=== PATIENT | female | born 1930 | race Caucasian/White ===

== ENCOUNTER 2016-08-29 08:49 | Inpatient (IN) | payer MEDICARE, BC ==
[~2016-08-29] VITALS: Ht 167.6 cm; Wt 50.0 kg
[~2016-08-29 08:49] MED LIST: ACET325 PO; ACIDTAB4 PO; FLAG500T PO; LEVA500T PO; LEVO.05
[2016-08-29 08:51] VITALS: BP 154/61; PULSE 76; RESP 18; TEMP 99; O2SAT 96
[2016-08-29] MEDS ORDERED: FERR324T4 PO (08:58)
[2016-08-29] MEDS ORDERED: LEVO50TA4 PO (08:58)
[2016-08-29] MEDS ORDERED: SODIUM CHLOR 0.9% 1000 ML INJ 1,000 ML IV SCH (09:03)
[2016-08-29] MEDS ORDERED: SODIUM CHLORIDE 0.9% FLUSH 5 ML FLUSH IV FLUSH PRN (09:15)
--- NOTE | 2016-08-29 09:29 | PD ---
HPI Chief Complaint: Fall Time Seen by Provider: 08:53 Travel History International Travel<30 days: No Contact w/Intl Traveler<30days: No Traveled to known affect area: No History of Present Illness HPI 85-year-old female arrives to the ER by EMS. Her daughter found patient on the floor this morning. The patient was lying supine on a hardwood floor somehow underneath a very narrow and long table. The patient does not recall exactly how she fell into such an awkward position. The daughter provides much of the history and notes that for the past 2 weeks or so the patient has become dependent on others were as she had been able to live alone previously requiring only visits from her daughter daily or every other day. A diagnoses of urinary tract infection was made [address] Pink and the patient was started on antibiotics. A second course of antibiotics were recently initiated. Within the last 7 days the patient has fallen thrice, most recently this morning as noted. Excessive sleepiness has been reported. Disorientation also noted as the patient reportedly slept until about 3:15 in the afternoon and then woke up to get coffee. Daughter notes work up at [facility] about one week ago was unremarkable with equivocal UA and negative head CT. No pelvis imaging performed. One fall since [facility] evaluation. PFS Past Medical History Arthritis: Yes Cancer: Yes (SKIN CANCER) Cardiovascular Problems: No High Cholesterol: No Diabetes: No Diminished Hearing: No Endocrine: Yes GERD: No Genitourinary: No Hiatal Hernia: No Immune Disorder: No Musculoskeletal: No Neurologic: No Psychiatric: No Reproductive: No Respiratory: No Thyroid Disease: Yes Ulcer: No ?: Not Menopausal: Yes Past Surgical History Eye Surgery: Yes Other Surgery: Yes Social History Alcohol Use: No Tobacco Use: No Substance Use: No Allergies-Medications (Allergen,Severity, Reaction): Coded Allergies: Benadryl (Verified Allergy, Unknown, 08/29/16) Contrast Media (Verified Allergy, Unknown, 08/29/16) Reported Meds & Prescriptions Reported Meds & Active Scripts Active Reported Ferrous Sulfate DR (Ferrous Sulfate) 324 Mg Tabdr 325 Mg PO DAILY Levothyroxine (Levothyroxine Sodium) 50 Mcg Tab 50 Mcg PO DAILY Review of Systems Except as stated in HPI: all other systems reviewed are Neg General / Constitutional: No: Fever Physical Exam Narrative GENERAL: 85 yo F, WNWD, oriented to place, knows that William Anna is the President currently, can state he daughter's and first grandchild's name as well as yes and no questioning SKIN: Warm and dry. Ecchymosis about the L anterior chest wall with appropriate tenderness. HEAD: Atraumatic. Normocephalic. Possible minute area of contusion L parietal scalp. EYES: Pupils equal and round. No scleral icterus. No injection or drainage. ENT: No nasal bleeding or discharge. Mucous membranes pink and moist. No air/ fluid level either TM. No sign skull base fracture. NECK: Trachea midline. No JVD. CARDIOVASCULAR: Regular rate and rhythm. RESPIRATORY: No accessory muscle use. Clear to auscultation. Breath sounds equal bilaterally. GASTROINTESTINAL: Abdomen soft, non-tender, nondistended. Hepatic and splenic margins not palpable. MUSCULOSKELETAL: Extremities without clubbing, cyanosis, or edema. No obvious deformities. NEUROLOGICAL: Awake and alert as noted above. No obvious cranial nerve deficits. Motor grossly within normal limits. Five out of 5 muscle strength in the arms and legs. Normal speech. PSYCHIATRIC: Appropriate mood and affect; insight and judgment normal. Data Data Last Documented VS Vital Signs Date Time Temp Pulse Resp B/P Pulse Ox O2 Delivery O2 Flow Rate FiO2 08/29/16 09:50 73 18 155/79 98 Room Air 08/29/16 08:51 99.0 VS reviewed Orders Basic Metabolic Panel (Bmp) (08/29/16 09:03) Complete Blood Count With Diff (08/29/16 09:03) Urinalysis - C+S If Indicated (08/29/16 09:03) Ct Brain W/O Iv Contrast(Rout) (08/29/16 09:03) Blood Glucose (08/29/16 09:03) Iv Access Insert/Monitor (08/29/16 09:03) Cath For Specimen (08/29/16 09:03) Oximetry (08/29/16 09:03) Sodium Chloride 0.9% Flush (Ns Flush) (08/29/16 09:15) Sodium Chlor 0.9% 1000 Ml Inj (Ns 1000 M (08/29/16 09:03) Pelvis, Ap Only (Routine) (08/29/16 ) Admit Order (Ed Use Only) (08/29/16 10:55) Chest, Single Ap (08/29/16 ) Labs Laboratory Tests Test 08/29/16 08/29/16 09:20 09:50 Urine Collection Type CATH Urine Color YELLOW Urine Turbidity CLEAR Urine pH 5.5 Urine Specific [place] 1.017 Urine Protein 100 mg/dL Urine Glucose (UA) NEG mg/dL Urine Ketones 40 mg/dL Urine Occult Blood MOD Urine Nitrite NEG Urine Bilirubin NEG Urine Leukocyte Esterase NEG Urine RBC 15-19 /hpf Urine WBC 0-2 /hpf Urine Transitional Epithelial 0-5 /hpf Cells Urine Renal Epithelial Cells 0-5 /hpf Urine Hyaline Casts 6-9 /lpf Microscopic Urinalysis Comment CATH-CULT NOT IND Urine Collection Time 09:20 White Blood Count 6.1 TH/MM3 Red Blood Count 4.48 MIL/MM3 Hemoglobin 13.0 GM/DL Hematocrit 39.4 % Mean Corpuscular Volume 87.9 FL Mean Corpuscular Hemoglobin 29.0 PG Mean Corpuscular Hemoglobin 33.0 % Concent Red Cell Distribution Width 13.5 % Platelet Count 69 TH/MM3 Mean Platelet Volume 7.8 FL Neutrophils (%) (Auto) 81.1 % Lymphocytes (%) (Auto) 5.3 % Monocytes (%) (Auto) 10.3 % Eosinophils (%) (Auto) 0.9 % Basophils (%) (Auto) 2.4 % Neutrophils # (Auto) 5.0 TH/MM3 Lymphocytes # (Auto) 0.3 TH/MM3 Monocytes # (Auto) 0.6 TH/MM3 Eosinophils # (Auto) 0.1 TH/MM3 Basophils # (Auto) 0.1 TH/MM3 CBC Comment AUTO DIFF Differential Comment AUTO DIFF CONFIRMED Platelet Estimate LOW Platelet Morphology Comment NORMAL Sodium Level 131 MEQ/L Potassium Level 3.9 MEQ/L Chloride Level 98 MEQ/L Carbon Dioxide Level 23.6 MEQ/L Anion Gap 9 MEQ/L Blood Urea Nitrogen 13 MG/DL Creatinine 0.88 MG/DL Estimat Glomerular Filtration 61 ML/MIN Rate Random Glucose 135 MG/DL Calcium Level 8.2 MG/DL [facility] Medical Decision Making Medical Screen Exam Complete: Yes Emergency Medical Condition: Yes Medical Record Reviewed: Yes Differential Diagnosis UTI, dehydration, electrolyte imbalance, metabolic disturbance, renal failure, anemia, ICH, hip/pelvic fracture Narrative Course CBC & BMP Diagram 08/29/16 09:50 UA: hematuria, no UTI Last [address] 08/29/16 0903 Signed Impressions: Service Date/Time: Monday, August 29, 2016 09:30 - CONCLUSION: Age-related findings and chronic ischemic findings. No acute intracranial findings. Naldo Spring MD Pelvis X-Ray 08/29/16 0000 Signed Impressions: Service Date/Time: Monday, August 29, 2016 09:32 - CONCLUSION: 1. Old proximal left femur fracture status post ORIF. 2. No acute fracture identified. Sacrum is obscured by bowel gas and stool. Naldo Spring MD CXR: cardiomegaly without consolidation Hematuria of unknown significance. D/w Dr Pink's service, SILK FINISHERNora Hathaway, who will take the patient as a 23 hr obs status given recurrent falls and new AMS. Diagnosis Primary Impression: Falls frequently Additional Impressions: Altered mental status Qualified Code: R41.82 - Altered mental status, unspecified altered mental status type Hematuria Admitting Information Admitting Physician Requests: Observation Otis Torres MD August 29, 2016 09:28
[2016-08-29 09:38] LABS: GLUCOSE,URINE NEG (NEG); KETONE, URINE 40 mg/dL (NEG); NITRITE,URINE NEG (NEG); PH, URINE 5.5 (5.0-8.5)
[2016-08-29 09:39] LABS: BLOOD, URINE MOD (NEG)
[2016-08-29 09:42] LABS: METHOD OF COLLECTION CATH; URINE COLOR YELLOW (YELLW/STRAW)
[2016-08-29 09:43] LABS: RBC, URINE 15-19 /hpf (0-3); TRANSITIONAL EPI CELLS, URINE 0-5 /hpf; WBC, URINE 0-2 /hpf (0-5)
[2016-08-29 09:44] LABS: COMMENT (UR) CATH-CULT NOT IND; CULTURE IF INDICATED CATH CULTURE NOT IND; RENAL EPITHELIAL CELLS 0-5 /hpf
[2016-08-29 09:50] VITALS: BP 155/79; PULSE 73; RESP 18; O2SAT 98
[2016-08-29 09:55] LABS: BASOPHIL # 0.1 TH/MM3 (0-0.2); BASOPHIL % 2.4 % (0.0-2.0); EOSINOPHIL # 0.1 TH/MM3 (0-0.4); EOSINOPHIL % 0.9 % (0.0-4.0); HEMATOCRIT 39.4 % (35.0-46.0); LYMPH % 5.3 % (9.0-44.0); LYMPHOCYTE # 0.3 TH/MM3 (1.0-4.8); MEAN CELL VOLUME 87.9 FL (80.0-100.0); MONO % 10.3 % (0.0-8.0); NEUT % 81.1 % (16.0-70.0); PLATELET COUNT 69 TH/MM3 (150-450); RED BLOOD COUNT 4.48 MIL/MM3 (4.00-5.30); RED CELL DISTRIBUTION WIDTH 13.5 % (11.6-17.2); WHITE BLOOD COUNT 6.1 TH/MM3 (4.0-11.0)
--- NOTE | 2016-08-29 10:00 | RADHPO ---
EXAM DATE/TIME: 08/29/2016 09:30 [facility] COMPARISON: No previous studies available for comparison. INDICATIONS : Found on the floor, possible fall. RADIATION DOSE: 63.72 CTDIvol (mGy) MEDICAL HISTORY : Dementia. SURGICAL HISTORY : None. ENCOUNTER: Initial ACUITY: 1 day PAIN SCALE: 0/10 LOCATION: cranial TECHNIQUE: Multiple contiguous axial images were obtained of the head. Using automated exposure control and adj ustment of the mA and/or kV according to patient size, radiation dose was kept as low as reasonably a chievable to obtain optimal diagnostic quality images. FINDINGS: CEREBRUM: The ventricles are normal for age. No evidence of midline shift, mass lesion, hemorrhage or acute in farction. No extra-axial fluid collections are seen. Periventricular white matter hypodensities like ly represent chronic ischemic change, most prominent in the right frontal lobe. 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 POSTERIOR FOSSA: The cerebellum and brainstem are intact. The 4th ventricle is midline. The cerebellopontine angle i s unremarkable. EXTRACRANIAL: The visualized portion of the orbits is intact. SKULL: The calvaria is intact. No evidence of skull fracture. CONCLUSION: Age-related findings and chronic ischemic findings. No acute intracranial findings. Naldo Spring MD on August 29, 2016 at 9:56 Board Certified Radiologist. This report was verified electronically.
[2016-08-29 10:01] LABS: HEMO FLAGS AUTO DIFF
--- NOTE | 2016-08-29 10:02 | RADHPO ---
EXAM DATE/TIME: 08/29/2016 09:32 [facility] COMPARISON: No previous studies available for comparison. INDICATIONS : Pelvic pain, slide out of chair onto floor. MEDICAL HISTORY : None. SURGICAL HISTORY : left hip replacement ENCOUNTER: Initial ACUITY: 1 day PAIN SCORE: 10 LOCATION: Bilateral pelvis FINDINGS: Single AP view of the pelvis. Left-sided hip screw and intramedullary rommel noted. Old fracture deformi ty proximal left femur. No evidence of acute fracture. Bone alignment within normal limits. Diffuse b one demineralization. Multiple distended air-filled loops of bowel. CONCLUSION: 1. Old proximal left femur fracture status post ORIF. 2. No acute fracture identified. Sacrum is obscured by bowel gas and stool. Naldo Spring MD on August 29, 2016 at 9:59 Board Certified Radiologist. This report was verified electronically.
[2016-08-29 10:03] LABS: POTASSIUM 3.9 MEQ/L (3.5-5.1)
[2016-08-29 10:05] LABS: BICARBONATE 23.6 MEQ/L (21.0-32.0)
[2016-08-29 10:35] LABS: PLATELET ESTIMATE SMEAR LOW (NORMAL); PLATELET MORPHOLOGY NORMAL (NORMAL)
[2016-08-29 10:36] LABS: SCAN/DIFF AUTO DIFF CONFIRMED
[2016-08-29] MEDS ORDERED: MAGNESIUM HYDROXIDE SUSP 30 ML CUP PO PRN (11:30)
[2016-08-29] MEDS ORDERED: ACETAMINOPHEN 325 MG TAB PO PRN (11:30)
[2016-08-29] MEDS ORDERED: SODIUM CHLORIDE 0.9% FLUSH 10 ML FLUSH IV FLUSH PRN (11:30)
[2016-08-29] MEDS ORDERED: LACTULOSE SYRUP 20 GM/30 ML CUP PO PRN (11:30)
[2016-08-29] MEDS ORDERED: BISACODYL 10 MG SUPP RECTAL PRN (11:30)
[2016-08-29] MEDS ORDERED: SENNOSIDES 8.6 MG TAB PO PRN (11:30)
[2016-08-29] MEDS ORDERED: NALOXONE HCL 0.4 MG/ML AMP IV PRN (11:30)
[2016-08-29] MEDS ORDERED: ONDANSETRON HCL 4 MG/2 ML VIAL IVP PRN (11:30)
[2016-08-29 11:38] VITALS: BP 165/77; PULSE 70; RESP 18; O2SAT 98
--- NOTE | 2016-08-29 11:54 | RADHPO ---
EXAM DATE/TIME: 08/29/2016 11:14 [facility] COMPARISON: CHEST SINGLE AP, August 21, 2014, 21:16. INDICATIONS : Fall, chest pain. MEDICAL HISTORY : None. SURGICAL HISTORY : None. ENCOUNTER: Subsequent ACUITY: 2 days PAIN SCORE: 2/10 LOCATION: Bilateral chest FINDINGS: Apical pleural thickening is present. I do not see evidence for an apical mass. CONCLUSION: Negative chest for acute disease. Riky Sams MD FACR on August 29, 2016 at 11:46 Board Certified Radiologist. This report was verified electronically.
[2016-08-29 12:45] VITALS: BP 193/85; PULSE 71; RESP 20; TEMP 98.2; O2SAT 100
[2016-08-29] MEDS ORDERED: ENOXAPARIN SODIUM 40 MG/0.4 ML SYRINGE SQ SCH (13:00)
[2016-08-29 16:00] VITALS: BP 162/82; PULSE 83; RESP 20; TEMP 98.6; O2SAT 99
--- NOTE | 2016-08-29 18:13 | HHI.HP ---
History of Present Illness Primary Care Physician Timmy Pink, DO Admission Diagnosis Recurrent Falls, AMS Diagnoses: History of Present Illness pt has one leg short she missed the chair when sitting and fell to the floor she is very alert and remembers the incident well she did not pass out or faint . due to orthopedic and djd problems she has had other falls in the past Review of Systems Cardiovascular: COMPLAINS OF: Chest pain Hematologic/lymphatic: COMPLAINS OF: Bruising Past Family Social History Allergies: Coded Allergies: Benadryl (Verified Allergy, Unknown, 08/29/16) Contrast Media (Verified Allergy, Unknown, 08/29/16) Past Medical History anemia hypothyroid Past Surgical History orif left thigh Reported Medications Reported Meds & Active Scripts Active Reported Ferrous Sulfate DR (Ferrous Sulfate) 324 Mg Tabdr 325 Mg PO DAILY Levothyroxine (Levothyroxine Sodium) 50 Mcg Tab 50 Mcg PO DAILY Active Ordered Medications Current Medications IV Flush 2 ml 2 ml UNSCH PRN IV FLUSH FLUSH AFTER USING IV ACCESS; Start at 09:15; Stop 08/29/16 at 12:33; Status DC Sodium Chloride (NS 1000 ml Inj) 1,000 ml @ 1,000 mls/hr Q1H IV Last administered on 08/29/16 09:03; Start 08/29/16 at 09:03; Stop 08/29/16 at 10:02 ; Status DC Sodium Chloride (NS Flush) 2 ml UNSCH PRN IV FLUSH FLUSH AFTER USING IV ACCESS ; Start 08/29/16 at 11:30 Sodium Chloride (NS Flush) 2 ml BID IV FLUSH ; Start 08/29/16 at 21:00 Acetaminophen (Tylenol) 650 mg Q4H PRN PO TEMP > 100.4; Start 08/29/16 at 11:30 Ondansetron HCl (Zofran Inj) 4 mg Q6H PRN IVP NAUSEA OR VOMITING; Start at 11:30 Enoxaparin Sodium (Lovenox Inj) 40 mg Q24H SQ Last administered on 08/29/16t 14 :22; Start 08/29/16 at 13:00 Naloxone HCl (Narcan Inj) 0.4 mg UNSCH PRN IV SEE LABEL COMMENTS; Start at 11:30 Senna/Docusate Sodium (Kinga-Colace) 1 tab BID PO ; Start 08/29/16 at 21:00 Magnesium Hydroxide (Milk Of Magnesia Liq) 30 ml Q12H PRN PO MILD - MODERATE CONSTIPATION; Start 08/29/16 at 11:30 Sennosides (Senokot) 17.2 mg Q12H PRN PO MODERATE - SEVERE CONSTIPATION; Start 08/29/16 at 11:30 Bisacodyl (Dulcolax Supp) 10 mg DAILY PRN RECTAL SEVERE CONSITIPATION; Start at 11:30 Lactulose (Lactulose Liq) 30 ml DAILY PRN PO SEVERE CONSITIPATION; Start at 11:30 Levothyroxine Sodium (Synthroid) 50 mcg DAILY@06 PO ; Start 08/30/16 at 06:00 Family History father in old age mother with epilepsy Social History non smoker non drinker Physical Exam Vital Signs Vital Signs Date Time Temp Pulse Resp B/P Pulse Ox O2 Delivery O2 Flow Rate FiO2 08/29/16 16:00 98.6 83 20 162/82 99 08/29/16 12:45 98.2 71 20 193/85 100 08/29/16 11:38 70 18 165/77 98 Room Air 08/29/16 09:50 73 18 155/79 98 Room Air 08/29/16 08:51 99.0 76 18 154/61 96 Physical Exam GENERAL: This is a well-nourished, well-developed patient, in no apparent distress. SKIN: No rashes, ecchymoses or lesions. Cool and dry. HEAD: Atraumatic. Normocephalic. No temporal or scalp tenderness. EYES: Pupils equal round and reactive. Extraocular motions intact. No scleral icterus. No injection or drainage. ENT: Nose without bleeding, purulent drainage or septal hematoma. Throat without erythema, tonsillar hypertrophy or exudate. Uvula midline. Airway patent. NECK: Trachea midline. No JVD or lymphadenopathy. Supple, nontender, no meningeal signs. CARDIOVASCULAR: Regular rate and rhythm without murmurs, gallops, or rubs. RESPIRATORY: Clear to auscultation. Breath sounds equal bilaterally. No wheezes , rales, or rhonchi. GASTROINTESTINAL: Abdomen soft, non-tender, nondistended. No hepato-splenomegaly , or palpable masses. No guarding. MUSCULOSKELETAL: bruising about sternum old ORIF left thigh NEUROLOGICAL: Awake and alert. Cranial nerves II through XII intact. Motor and sensory grossly within normal limits. Five out of 5 muscle strength in all muscle groups. Normal speech. Laboratory Laboratory Tests Test 08/29/16 08/29/16 09:20 09:50 Urine Collection Type CATH Urine Color YELLOW Urine Turbidity CLEAR Urine pH 5.5 Urine Specific [place] 1.017 Urine Protein 100 Urine Glucose (UA) NEG Urine Ketones 40 Urine Occult Blood MOD Urine Nitrite NEG Urine Bilirubin NEG Urine Leukocyte Esterase NEG Urine RBC 15-19 Urine WBC 0-2 Urine Transitional Epithelial 0-5 Cells Urine Renal Epithelial Cells 0-5 Urine Hyaline Casts 6-9 Microscopic Urinalysis Comment CATH-CULT NOT IND Urine Collection Time 09:20 White Blood Count 6.1 Red Blood Count 4.48 Hemoglobin 13.0 Hematocrit 39.4 Mean Corpuscular Volume 87.9 Mean Corpuscular Hemoglobin 29.0 Mean Corpuscular Hemoglobin 33.0 Concent Red Cell Distribution Width 13.5 Platelet Count 69 Mean Platelet Volume 7.8 Neutrophils (%) (Auto) 81.1 Lymphocytes (%) (Auto) 5.3 Monocytes (%) (Auto) 10.3 Eosinophils (%) (Auto) 0.9 Basophils (%) (Auto) 2.4 Neutrophils # (Auto) 5.0 Lymphocytes # (Auto) 0.3 Monocytes # (Auto) 0.6 Eosinophils # (Auto) 0.1 Basophils # (Auto) 0.1 CBC Comment AUTO DIFF Differential Comment AUTO DIFF CONFIRMED Platelet Estimate LOW Platelet Morphology Comment NORMAL Sodium Level 131 Potassium Level 3.9 Chloride Level 98 Carbon Dioxide Level 23.6 Anion Gap 9 Blood Urea Nitrogen 13 Creatinine 0.88 Estimat Glomerular Filtration 61 Rate Random Glucose 135 Calcium Level 8.2 Result Diagram: 08/29/16 0950 08/29/16 0950 Imaging Last [address] 08/29/16 0903 Signed Impressions: Service Date/Time: Monday, August 29, 2016 09:30 - CONCLUSION: Age-related findings and chronic ischemic findings. No acute intracranial findings. Naldo Spring MD Pelvis X-Ray 08/29/16 0000 Signed Impressions: Service Date/Time: Monday, August 29, 2016 09:32 - CONCLUSION: 1. Old proximal left femur fracture status post ORIF. 2. No acute fracture identified. Sacrum is obscured by bowel gas and stool. Naldo Spring MD Assessment and Plan Problem List: (1) Falls frequently Status: Acute Assessment and Plan fall with sternal bruising Discussed Condition With patient Discharge Planning home with [facility] Timmy Pink DO August 29, 2016 18:13
[2016-08-29 20:00] VITALS: BP 169/78; PULSE 70; RESP 16; TEMP 98.3; O2SAT 96
[2016-08-29] MEDS: DOCUSATE SODIUM 50 MG/SENNA 8.6 MG TAB PO SCH (21:05)
[2016-08-29] MEDS: SODIUM CHLORIDE 0.9% FLUSH 10 ML FLUSH IV FLUSH SCH (21:05)
[2016-08-30] VITALS: BP 169/85; PULSE 76; RESP 16; TEMP 98.7; O2SAT 97
[2016-08-30] MEDS: LEVOTHYROXINE SODIUM 50 MCG TAB PO SCH (06:14)
[2016-08-30 06:45] LABS: AUTOMATED NEUTROPHIL # 2.2 TH/MM3 (1.8-7.7); BASOPHIL % 0.1 % (0.0-2.0); EOSINOPHIL # 0.3 TH/MM3 (0-0.4); EOSINOPHIL % 6.5 % (0.0-4.0); HEMATOCRIT 35.2 % (35.0-46.0); LYMPH % 26.7 % (9.0-44.0); LYMPHOCYTE # 1.2 TH/MM3 (1.0-4.8); MEAN CORPUSCULAR HGB CONC 32.9 % (32.0-36.0); MONO % 15.6 % (0.0-8.0); NEUT % 51.1 % (16.0-70.0); PLATELET COUNT 60 TH/MM3 (150-450); RED CELL DISTRIBUTION WIDTH 13.9 % (11.6-17.2); WHITE BLOOD COUNT 4.4 TH/MM3 (4.0-11.0)
[2016-08-30 06:47] LABS: HEMO FLAGS AUTO DIFF
[2016-08-30 06:53] LABS: CHLORIDE 102 MEQ/L (98-107); POTASSIUM 3.9 MEQ/L (3.5-5.1); SODIUM (NA) 134 MEQ/L (136-145)
--- NOTE | 2016-08-30 06:57 | HHI.PR ---
Subjective Remarks Seen at bedside. Alert but not oriented to time. Denies any SOB. Pain noted on chest region and bruising present. Objective Vital Signs Date Time Temp Pulse Resp B/P Pulse Ox O2 Delivery O2 Flow Rate FiO2 08/30/16 00:00 98.7 76 16 169/85 97 08/29/16 20:00 98.3 70 16 169/78 96 08/29/16 16:00 98.6 83 20 162/82 99 08/29/16 12:45 98.2 71 20 193/85 100 08/29/16 11:38 70 18 165/77 98 Room Air 08/29/16 09:50 73 18 155/79 98 Room Air 08/29/16 08:51 99.0 76 18 154/61 96 I/O 08/29/16 08/29/16 08/29/16 08/30/16 08/30/16 08/30/16 07:00 15:00 23:00 07:00 15:00 23:00 Intake Total 210 ml 240 ml Balance 210 ml 240 ml Intake Oral 210 ml 240 ml # Voids 1 1 1 # Bowel Movements 1 Result Diagram: 08/30/16 0510 08/29/16 0950 Imaging Last [address] 08/29/16 0903 Signed Impressions: Service Date/Time: Monday, August 29, 2016 09:30 - CONCLUSION: Age-related findings and chronic ischemic findings. No acute intracranial findings. Naldo Spring MD Pelvis X-Ray 08/29/16 0000 Signed Impressions: Service Date/Time: Monday, August 29, 2016 09:32 - CONCLUSION: 1. Old proximal left femur fracture status post ORIF. 2. No acute fracture identified. Sacrum is obscured by bowel gas and stool. Naldo Spring MD Chest X-Ray 08/29/16 0000 Signed Impressions: Service Date/Time: Monday, August 29, 2016 11:14 - CONCLUSION: Negative chest for acute disease. Riky Sams MD FACR Objective Remarks GENERAL: Alert and cooperative SKIN: Warm and dry. HEAD: Normocephalic. EYES: No scleral icterus. No injection or drainage. NECK: Supple, trachea midline. No JVD or lymphadenopathy. CARDIOVASCULAR: Regular rate and rhythm without murmurs, gallops, or rubs. RESPIRATORY: Breath sounds equal bilaterally. No accessory muscle use. GASTROINTESTINAL: Abdomen soft, non-tender, nondistended. MUSCULOSKELETAL: No cyanosis, or edema. BACK: Nontender without obvious deformity. No CVA tenderness. Medications and IVs Current Medications Medications (Trade) Dose Ordered Sig/Terence Route Start Time Stop Time Status Last Admin (NS Flush) 2 ml UNSCH PRN IV FLUSH 08/29/16 11:30 (NS Flush) 2 ml BID IV FLUSH 08/29/16 21:00 08/29/16 21:05 (Tylenol) 650 mg Q4H PRN PO 08/29/16 11:30 (Zofran Inj) 4 mg Q6H PRN IVP 08/29/16 11:30 (Lovenox Inj) 40 mg Q24H SQ 08/29/16 13:00 08/29/16 14:22 (Narcan Inj) 0.4 mg UNSCH PRN IV 08/29/16 11:30 (Kinga-Colace) 1 tab BID PO 08/29/16 21:00 08/29/16 21:05 (Milk Of Magnesia Liq) 30 ml Q12H PRN PO 08/29/16 11:30 (Senokot) 17.2 mg Q12H PRN PO 08/29/16 11:30 (Dulcolax Supp) 10 mg DAILY PRN RECTAL 08/29/16 11:30 (Lactulose Liq) 30 ml DAILY PRN PO 08/29/16 11:30 (Synthroid) 50 mcg DAILY@06 PO 08/30/16 06:00 08/30/16 06:14 Assessment and Plan Problem List: (1) Falls frequently Status: Acute Plan: PT ordered. (2) Altered mental status Status: Acute Plan: Patient is alert not oriented to time. Neurology consulted. (3) Hematuria Status: Acute Plan: Moderate amount of Microscopic blood noted in UA. Could be related to falls/trauma. No dysuria or suprapubic discomfort noted. Urology consulted. (4) Hyponatremia Status: Acute Plan: Sodium yesterday 131 improved to 134 today. Will monitor (5) Thrombocytopenia Status: Acute Plan: Plts at 60 this AM down from 69 possibly from consumption from fall. Discussed with Dr. Pink and hematology consulted. will monitor Assessment and Plan Assessment and plan discussed with Dr. Pink. Discussed Condition With Nursing Discharge Planning Home with [facility] Physician Attestation I and the PLASTIC SEWER have both examined this patient and reviewed this note and I agree with these findings and plan of care. Timmy Pink DO Problem Qualifiers (1) Altered mental status: Qualified Code: R41.82 - Altered mental status, unspecified altered mental status type Devi Parker Aug 30, 2016 06:57
[2016-08-30 06:58] LABS: ANION GAP 9 MEQ/L (5-15); BICARBONATE 23.5 MEQ/L (21.0-32.0); BLOOD UREA NITROGEN 16 MG/DL (7-18)
[2016-08-30 07:01] LABS: ALT (GPT) 19 U/L (10-53); AST (GOT) 22 U/L (15-37); GLOMERULAR FILTRATION RATE 72 ML/MIN (>89)
[2016-08-30 07:03] LABS: TOTAL BILIRUBIN ADULT 0.5 MG/DL (0.2-1.0)
[2016-08-30 07:04] LABS: ALKALINE PHOSPHATASE 52 U/L (45-117)
[2016-08-30 07:26] LABS: SCAN/DIFF AUTO DIFF CONFIRMED
[2016-08-30 08:00] VITALS: BP 163/93; PULSE 67; RESP 20; TEMP 96.9; O2SAT 95
[2016-08-30] MEDS: DOCUSATE SODIUM 50 MG/SENNA 8.6 MG TAB PO SCH ×2 (08:21→21:32)
[2016-08-30] MEDS: SODIUM CHLORIDE 0.9% FLUSH 10 ML FLUSH IV FLUSH SCH ×2 (08:21→21:00)
[2016-08-30] MEDS ORDERED: FAMOTIDINE 20 MG TAB PO SCH (09:00)
[2016-08-30 09:58] LABS: THYROXINE (T4) 8.7 MCG/DL (4.8-13.9)
[2016-08-30 12:00] VITALS: BP 145/77; PULSE 68; RESP 18; TEMP 96.8; O2SAT 96
--- NOTE | 2016-08-30 12:17 | RADHPO ---
EXAM DATE/TIME: 08/30/2016 11:00 [facility] COMPARISON: CT BRAIN W/O CONTRAST, August 29, 2016, 9:30. INDICATIONS : CVA. Frequent falls. CONTRAST: 9 cc Omniscan (gadodiamide) IV MEDICAL HISTORY : Hypertension. SURGICAL HISTORY : Left leg and left shoulder. ENCOUNTER: Initial ACUITY: 1 day PAIN SCORE: 0/10 LOCATION: Head. TECHNIQUE: Multiplanar, multisequence MRI of the brain was performed both prior to and following the administrat ion of paramagnetic contrast. FINDINGS: CEREBRUM: There is mild generalized atrophy. Ventricles are normal in size. No evidence of midline shift, mass lesion, or hemorrhage. There is a focal ovoid 12 mm area of increased flair/T2 signal in the left fro ntal periventricular white matter. This area is associated with restricted diffusion. There is no enh ancement within this area. No extraaxial fluid collections are seen. The pituitary gland and suprase llar cistern are normal in configuration. Encephalomalacia is present in the right inferior frontal l obe and left occipital lobe. WHITE MATTER: There is moderate periventricular and subcortical white matter signal change. POSTERIOR FOSSA: The cerebellum and brainstem are intact. The 4th ventricle is midline. The cerebellopontine angle is unremarkable. The cerebellar tonsils are normal in position. DIFFUSION IMAGING: There is an ovoid area of restricted diffusion in the left frontal periventricular white matter in th e mid convexity. EXTRACRANIAL: The visualized portions of the orbits and paranasal sinuses are unremarkable. POST-CONTRAST: No abnormal areas of parenchymal or dural enhancement. No evidence of blood-brain barrier breakdown. CONCLUSION: 1. There is a focal area restricted diffusion in the left frontal periventricular white matter charac teristic of a recent ischemia. 2. Chronic changes are present including generalized atrophy and chronic periventricular and subcorti diana white matter and ischemic demyelination. There is also encephalomalacia in the right frontal lobe and left occipital lobe. Julito Dailey MD on August 30, 2016 at 12:09 Board Certified Radiologist. This report was verified electronically.
--- NOTE | 2016-08-30 12:38 | RADHPO ---
EXAM DATE/TIME: 08/30/2016 11:00 Caution: Report not yet finalized and possibly incomplete! [facility] COMPARISON: No previous studies available for comparison. INDICATIONS : Myelopathy.<<Frequent falls.>> MEDICAL HISTORY : Hypertension. SURGICAL HISTORY : Left shoulder and left leg. ENCOUNTER: Initial ACUITY: 1 day PAIN SCORE: 0/10 LOCATION: Neck. TECHNIQUE: Multiplanar, multisequence MRI examination of the cervical spine was performed. FINDINGS: The sagittal T1, T2 and inversion recovery images show a very heterogeneous appearance of vertebral b odies throughout the cervical and visualized portions of the thoracic spine. This is predominantly t ubular areas of increased T2 and inversion recovery signal which may represent prominent vascular str uctures. There is degenerative disc disease most prominent from C4-5 through C6-7 with loss of disc height and marginal spurring which does encroach on the spinal canal but does not result in significa nt stenosis. The spinal canal appears to be adequate throughout. Cord signal is normal. Posterior fossa is radiographically normal. Detailed axial images as follows: C2-C3: The thecal sac has a normal configuration. There is no evidence of disc herniation or spinal canal s tenosis. The neural foramina are patent bilaterally. C3-C4: Left facet hypertrophy. Spinal canal and neural foramina are patent. C4-C5: Uncovertebral ridging encroaches on the spinal canal with mild central spinal stenosis but no cord co mpromise. There is narrowing of both neural foramina, left greater than right. This may be severe e nough to compromise the left C5 nerve root. C5-C6: Uncovertebral ridging encroaches on the spinal canal. This does result in some central spinal stenos is with no cord compromise. Minimal encroachment on both neural foramina but the neural foramina mel ear to be adequate. C6-C7: Uncovertebral ridging encroaches on the spinal canal without cord compromise. Both neural foramina ar e adequate. C7-T1: The thecal sac has a normal configuration. There is no evidence of disc herniation or spinal canal s tenosis. The neural foramina are patent bilaterally. CONCLUSION: 1. Degenerative disc disease most prominent from C4-5 through C6-7 with uncovertebral ridging result ing in mild to moderate central spinal stenosis but no obvious significant central spinal stenosis or cord compromise. 2. There is bilateral foraminal narrowing at C4-5 predominantly due to uncovertebral ridging. This narrows the neural foramina and may compromise exiting C5 nerve roots. 3. There is facet hypertrophy leftward at C3-4. This does not result in significant stenosis. 4. Marked heterogeneity of the visualized vertebral bodies throughout the cervical and the upper kia kelli spine. Some of these appear tubular and these may represent prominent vessels. A contrasted CT scan of the lower neck and chest could be performed for further characterization. Findings could repr esent vascular shunting or a large vascular malformation. Roldan Reed MD on August 30, 2016 at 12:05
[2016-08-30] MEDS ORDERED: GADODIAMIDE PF 287 MG/ML 10 ML VIAL (for RAD MRI) IV ONE (13:12)
[2016-08-30] MEDS ORDERED: PILL SPLITTER OTHER PRN (14:15)
[2016-08-30 16:00] VITALS: BP_SYST 151; BP_SYST 157; BP_SYST 167; BP_DIAS 78; BP_DIAS 79; BP_DIAS 80; PULSE 71; RESP 18; TEMP 97.2; O2SAT 95
[2016-08-30] MEDS: ASPIRIN EC 325 MG TABEC PO SCH (16:30)
[2016-08-30] MEDS: SODIUM CHLOR 0.9% 1000 ML INJ 1,000 ML IV SCH (16:31)
--- NOTE | 2016-08-30 17:13 | EC ---
Study Study Date:08/30/2016 STUDY CONCLUSIONS SUMMARY - Left ventricle: The cavity size was normal. Wall thickness was increased in a pattern of moderate LVH. Systolic function was mildly to moderately reduced. The estimated ejection fraction was in the range of 40% to 45%. Wall motion was normal; there were no regional wall motion abnormalities. - Aortic valve: Transvalvular velocity was increased. There was mild stenosis. Valve area: 1.3cm^2(VTI). Valve area: 1.13cm^2 (Vmax). - Mitral valve: Mild regurgitation. - Tricuspid valve: Mild regurgitation. - Pulmonary arteries: PA peak pressure: 35mm Hg (S). If LV function is below 40, please consider prescribing an ACEI or ARB or document rationale for non-use. PROCEDURE DATA STUDY STATUS: Elective. Procedure: Transthoracic echocardiography. Image quality was good. Scanning was performed from the parasternal, apical, and subcostal acoustic windows. Study completion: The patient tolerated the procedure well. Transthoracic echocardiography. M-mode, complete 2D, complete spectral Doppler, and color Doppler. Patient status: Inpatient. CARDIAC ANATOMY LEFT VENTRICLE: The cavity size was normal. Wall thickness was increased in a pattern of moderate LVH. Systolic function was mildly to moderately reduced. The estimated ejection fraction was in the range of 40% to 45%. Wall motion was normal; there were no regional wall motion abnormalities. AORTIC VALVE: Trileaflet; normal thickness leaflets. Doppler: Transvalvular velocity was increased. There was mild stenosis. No regurgitation. Valve area: 1.3cm^2(VTI). Valve area: 1.13cm^2 (Vmax). Mean gradient: 9mm Hg (S). Peak gradient: 21mm Hg (S). AORTA: Aortic root: The aortic root was normal in size. MITRAL VALVE: Structurally normal valve. Doppler: Transvalvular velocity was within the normal range. There was no evidence for stenosis. Mild regurgitation. LEFT ATRIUM: The atrium was normal in size. RIGHT VENTRICLE: The cavity size was normal. Wall thickness was normal. PULMONIC VALVE: Doppler: Transvalvular velocity was within the normal range. There was no evidence for stenosis. No regurgitation. TRICUSPID VALVE: Structurally normal valve. Doppler: Transvalvular velocity was within the normal range. Mild regurgitation. PULMONARY ARTERY: The main pulmonary artery was normal-sized. Systolic pressure was within the normal range. RIGHT ATRIUM: The atrium was normal in size. PERICARDIUM: There was no pericardial effusion. SYSTEMIC VEINS: Inferior vena cava: The vessel was normal in size. BASIC MEASUREMENTS ADULT Normal Left ventricle LV internal dimension, ED, chordal level, *34 mm 43-52 PLAX LV internal dimension, ES, chordal level, 28 mm 23-38 PLAX Fractional shortening, chordal level, PLAX *18 % >29 LV posterior wall thickness, ED 10 mm IVS/LVPW ratio, ED *1.76 <1.3 Ventricular septum Septal thickness, ED 17.6 mm Aortic valve Leaflet separation *11 mm 15-26 Right ventricle RV internal dimension, ED, PLAX 19.5 mm 19-38 BASIC MEASUREMENTS ADULT Normal Aortic valve Leaflet separation *11 mm 15-26 Aorta Root diameter, ED 31 mm 20-37 Left atrium Anterior-posterior dimension, ES 40 mm 19-40 LA/aortic root ratio 1.29 DOPPLER MEASUREMENTS ADULT Normal Main pulmonary artery Pressure, S *35 mm Hg =30 Aortic valve Peak velocity, S 230 cm/s Mean velocity, S 137 cm/s VTI, S 43.8 cm Mean gradient, S 9 mm Hg Peak gradient, S 21 mm Hg Valve area, VTI 1.3 cm^2 Valve area, Vmax 1.13 cm^2 Mitral valve Peak E-wave velocity 32.6 cm/s Peak A-wave velocity 95.3 cm/s Peak E/A ratio 0.3 Tricuspid valve Regurgitant peak velocity 250 cm/s Peak RV-RA gradient, S 25 mm Hg Maximal regurgitant velocity 250 cm/s Systemic veins Estimated CVP 10 mm Hg Right ventricle RV pressure, S *35 mm Hg <30 LEGEND: Mean values are shown as u=mean value. Asterisk (*) otto values outside specified normal range. Prepared and signed by Tyron Rivero [id number]
[2016-08-30 18:36] LABS: CRENATED RBCS 2+ (NORMAL)
[2016-08-30 18:37] LABS: OVALOCYTES 1+ (NORMAL)
[2016-08-30 18:39] LABS: ACANTHOCYTES 3+ (NORMAL); KERATOCYTES 1+ (NORMAL)
[2016-08-30 18:51] LABS: BURR CELLS 2+ (NORMAL)
[2016-08-30] MEDS ORDERED: GADODIAMIDE PF 287 MG/ML 20 ML VIAL (for RAD MRI) IV ONE (19:47)
[2016-08-30 19:52] VITALS: PULSE 70
--- NOTE | 2016-08-30 19:55 | RADHPO ---
EXAM DATE/TIME: 08/30/2016 19:36 [facility] COMPARISON: MRI BRAIN W & W/O CONTRAST, August 30, 2016, 11:00. INDICATIONS : CVA. Frequent falls. MEDICAL HISTORY : Hypertension. SURGICAL HISTORY : Left leg and left shoulder. ENCOUNTER: Initial ACUITY: 1 day PAIN SCORE: 0/10 LOCATION: Head. Please note a normal MRA of the brain does not entirely exclude the possibility of a small aneurysm, nor the possibility of distal intracranial vessel disease. TECHNIQUE: 3D time of flight MRA was performed. Source images, multiplanar STS MIP, and 3D volume MIP reconstru ctions were reviewed. FINDINGS: There is excellent visualization of the major intracranial arteries out to the second-order branch ve ssels. Scattered atherosclerotic plaque particularly within the intercavernous ICAs bilaterally. Ther e is a solitary high-grade stenosis involving the left P2. A moderate stenosis involving the distal l eft M1. No aneurysm. No occlusion. No filling defect.. CONCLUSION: 1. Atherosclerotic disease with areas of luminal narrowing involving the left M1 and left P2. Zaid Coy Jr., MD on August 30, 2016 at 19:51 Board Certified Radiologist. This report was verified electronically.
[2016-08-30 19:58] LABS: FREE T4 1.24 NG/DL (0.76-1.46); HDL CHOLESTEROL 46.1 MG/DL (40.0-60.0); TOTAL PROTEIN SPE 5.8 GM/DL (6.0-7.6)
[2016-08-30 20:00] VITALS: BP_SYST 136; BP_SYST 142; BP_SYST 161; BP_DIAS 80; BP_DIAS 82; BP_DIAS 85; PULSE 82; RESP 20; TEMP 96.7; O2SAT 97
--- NOTE | 2016-08-30 20:22 | RADHPO ---
EXAM DATE/TIME: 08/30/2016 19:36 [facility] COMPARISON: No previous studies available for comparison. INDICATIONS : Stroke. Frequent falls. CONTRAST: 20 cc Omniscan (gadodiamide) IV MEDICAL HISTORY : Hypertension. SURGICAL HISTORY : Left leg and left shoulder. ENCOUNTER: Initial ACUITY: 1 day PAIN SCORE: 0/10 LOCATION: Head. Percent stenosis is calculated using the diameter of the stenotic region over the diameter of the nor mal distal internal carotid artery. TECHNIQUE: Bolus infused MRA of the extracranial circulation was performed using a neurovascular coil. Post pro cessing was performed including rotating subvolume maximum intensity projections of each carotid hannah ry, rotating full volume maximum intensity projections of both carotid arteries, sagittal and coronal sliding thin slab reformations of each carotid artery, and left oblique sliding thin slab reformatio n through the aortic arch to include the origin of the arch branch vessels. FINDINGS: AORTIC ARCH: There is a three vessel origin of the great vessels from the aorta. No evidence of ostial narrowing. RIGHT CAROTID: Common carotid and proximal ICA are patent. There is a beaded appearance to the mid extracranial ICA suggestive of FMD. The ECA is patent. LEFT CAROTID: Common carotid and proximal ICA are patent. There is a beaded appearance to the mid extracranial ICA suggestive of FMD. The ECA is patent. VERTEBRALS: The origin of the right vertebral artery is obscured by artifact. The left vertebral artery origin is patent. Atherosclerotic plaque generate a high-grade stenosis of the left vertebral artery at the le fifi of the foramen magnum. Both supply the basilar artery. CONCLUSION: 1. 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 This does not generate a hemodynamically significant stenosis. 2. Stenosis of the left vertebral artery with a patent right vertebral artery. Zaid Coy Jr., MD on August 30, 2016 at 20:18 Board Certified Radiologist. This report was verified electronically.
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
[2016-08-30] MEDS: FAMOTIDINE 20 MG TAB PO SCH (21:31)
[2016-08-31] VITALS (8 sets, daily range): BP systolic 123–168; BP diastolic 64–80; PULSE 60–78; RESP 16–20; TEMP 96.4–97.9; O2SAT 95–99
[2016-08-31] MEDS: SODIUM CHLOR 0.9% 1000 ML INJ 1,000 ML IV SCH ×2 (06:27→17:21)
[2016-08-31] MEDS: LEVOTHYROXINE SODIUM 50 MCG TAB PO SCH (06:27)
[2016-08-31 06:38] LABS: AUTOMATED NEUTROPHIL # 2.1 TH/MM3 (1.8-7.7); BASOPHIL % 0.4 % (0.0-2.0); EOSINOPHIL # 0.3 TH/MM3 (0-0.4); EOSINOPHIL % 5.9 % (0.0-4.0); HEMATOCRIT 35.7 % (35.0-46.0); LYMPH % 34.4 % (9.0-44.0); LYMPHOCYTE # 1.5 TH/MM3 (1.0-4.8); MEAN CELL VOLUME 87.7 FL (80.0-100.0); MEAN CORPUSCULAR HEMOGLOBIN 28.8 PG (27.0-34.0); MEAN CORPUSCULAR HGB CONC 32.8 % (32.0-36.0); MONO % 13.2 % (0.0-8.0); NEUT % 46.1 % (16.0-70.0); PLATELET COUNT 70 TH/MM3 (150-450); RED BLOOD COUNT 4.07 MIL/MM3 (4.00-5.30); RED CELL DISTRIBUTION WIDTH 13.6 % (11.6-17.2); WHITE BLOOD COUNT 4.5 TH/MM3 (4.0-11.0)
[2016-08-31 06:39] LABS: HEMO FLAGS AUTO DIFF
--- NOTE | 2016-08-31 06:40 | MB ---
cc: JENNIFER AYALA MD HEMATOLOGY/ONCOLOGY CONSULTATION NOTE DATE OF 1930. DATE OF CONSULTATION 08/30/2016 REASON FOR CONSULTATION Thrombocytopenia. CHIEF COMPLAINT Ms. Boss reports having "slid out of her chair" on multiple occasions over the past few weeks. She was brought into the hospital by her daughter for further workup and evaluation of recurrent falls. Per the electronic medical record, the patient was also noted to be altered mentally and confused when admitted to the hospital. HISTORY OF PRESENT ILLNESS Ms. Boss is an 85-year-old female who was originally from [place], [place]. She is a resident of the [facility]. She lives at home alone with her three dogs. The patient tells me she is independent in all activities of daily living but has of late felt unsteady on her feet and has "slid out of her chair" on multiple occasions. She denies any hard impact or injury secondary to these episodes. The Hematology Service has been asked to evaluate this patient for further workup and management of her chronic thrombocytopenia. Based on the electronic medical record, the thrombocytopenia dates back at least to 2005. The highest platelet count on record is 126,000 (September 2005) and the lowest platelet count on record is 58,000 which was from January 2011. The patient herself does not have any knowledge of a formal diagnosis of thrombocytopenia and tells me she has never been worked up for any blood disorders either. She has, however, noticed easy bruising and tells me she has some painful bruises on her sternum as well as along the sides of her jaw. She does, however, deny overt bleeding specific hematochezia or melena or nosebleeds. PAST MEDICAL HISTORY 1. Hypothyroidism. 2. Peripheral neuropathy. 3. General frailty. 4. Osteoarthritis. PAST SURGICAL HISTORY She is unable to report any surgeries other than skin cancer removal. FAMILY HISTORY Noncontributory. She cannot recall. SOCIAL HISTORY Lives at home alone. She has a daughter who lives nearby. She denies alcohol consumption or tobacco consumption. ALLERGIES BENADRYL. CONTRAST MEDIA. CURRENT INPATIENT MEDICATIONS 1. Normal saline 75 cc/hour. 2. Tylenol 650 mg p.o. q.4 hours for temperature over 100.4 degrees Fahrenheit. 3. Amlodipine 100 mg p.o. daily. 4. Aspirin 325 mg p.o. daily. 5. Dulcolax suppository, 10 mL per rectal daily. 6. Colace 1 mg p.o. b.i.d. 7. Famotidine 10 mg p.o. b.i.d. 8. Levothyroxine 50 mcg p.o. daily. 9. Magnesium hydroxide 30 mL p.o. q.12 hours. 10. Zofran 4 mg IV q.4 hours as needed for nausea and vomiting. 11. Senna 17.2 mg p.o. q.12 hours as needed for moderate to severe constipation. REVIEW OF SYSTEMS A 13-point review of systems was obtained. The following are the pertinent positives in addition to what is mentioned in the HPI - CONSTITUTIONAL: The patient reports some fatigue, weakness. Denies fevers, chills, night sweats. She tells me her appetite has been generally poor lately. HEENT: Denies headaches, blurry vision, difficulty swallowing or sore throat. She reports pain along the angle of her jaw on both sides. RESPIRATORY: Denies difficulty breathing, cough or hemoptysis. CARDIOVASCULAR: No complaints. GI: Denies nausea, vomiting, diarrhea, hematochezia or melena. She reports her appetite is generally poor. : No complaints. MUSCULOSKELETAL: No complaints. PHYSICAL EXAMINATION VITAL SIGNS: Temperature 97.2 degrees Fahrenheit, heart rate 71 beats per minute, respiratory rate 18, blood pressure 157/78, O2 sats are 95% on room air. GENERAL PHYSICAL APPEARANCE: Ms. Boss is an elderly female. She appears to be somewhat frail. She is laying in bed. She is, however, not acutely distressed. HEENT: Head atraumatic, normocephalic. Conjunctivae are not pale; sclerae are anicteric. EOMI, PERRLA. Oral exam - Dry mucous membranes. No pharyngeal erythema. No petechiae. NECK EXAMINATION: No cervical lymphadenopathy, no JVD. RESPIRATORY EXAM: Good air movement bilaterally. No added breath sounds. CARDIOVASCULAR: Regular rate and rhythm, S1-S2. No obvious murmurs, rubs or gallops. ABDOMINAL EXAM: Thin belly, soft, nontender, nondistended. No palpable hepatosplenomegaly, no inguinal lymphadenopathy. LOWER EXTREMITIES: No pretibial edema or calf tenderness. SKIN EXAMINATION: She has some bruising along the sides of her jaw, she has a resolving bruise over her sternum. LABORATORY FINDINGS Blood work dated 08/30/2016 - WBC count 4.4, hemoglobin 11.6 gm/dl, hematocrit is 35.2, platelet count 60,000, absolute neutrophil count 22. Chemistries: Sodium 134, potassium 3.9, chloride 102, bicarbonate 23.5, BUN 16, creatinine 0.76, EGFR 72, random glucose 96, calcium 8 total bilirubin 0.5, AST 22, ALT 19, alkaline phosphatase 52, albumin 3, TSH 1.9. CE screen is pending. RPR screen is pending as well. IMAGING STUDIES MRI of the brain dated 08/30/2016: There is a focal area of restricted diffusion in the left frontal periventricular white matter characteristic of recent ischemia. Chronic changes are present including generalized atrophy and chronic periventricular and subcortical white matter ischemic demyelination. There is also encephalomalacia in the right frontal lobe and left occipital lobe. ASSESSMENT Ms. Boss is an 85-year-old female who lives at home alone. She was brought into the emergency department for further workup and evaluation of altered mental status and recurrent falls. Imaging studies of the brain indicate possibility of a recent ischemic infarct as well as an encephalomalacia. The patient was noted to have a thrombocytopenia which in fact is quite chronic. I would venture to say that her platelet count at present is at her baseline. The etiology of the thrombocytopenia is not clear at this point. RECOMMENDATIONS 1. Thrombocytopenia: I will review her peripheral smear to manually count her platelets to rule out platelet clumping which may explain her thrombocytopenia. Additionally, I would like to review the morphology of her platelets to ensure these are not enlarged. 2. Additional dysmorphic or dysplastic findings will be reviewed as well. 3. If no primary bone marrow disorders are suspected based on peripheral smear analysis, I will request evaluation for other causes of thrombocytopenia, specifically hepatitis, immune thrombocytopenia, splenic sequestration secondary to splenomegaly/hypersplenism. 4. Additionally, I would also recommend her medications be evaluated for those that include adverse effects associated with thrombocytopenia. Upon cursory review I am able to identify at least one or two medications which are routinely associated with thrombocytopenia, specifically famotidine and aspirin. It may be reasonable to discontinue these temporarily to assess if her counts recover. 5. Peripheral smear reviewed: Grossly abnormal RBC morphology noted; numerous echinocytes and acanthocytes noted. Decreased PLTs. WBCs were largely normal in morphology. Pathologist's review requested. The hematology service will follow along with you. MD GERALD Dumas/HANY /6:16 PM /6:20 AM BHAVANA
[2016-08-31 06:52] LABS: POTASSIUM 3.8 MEQ/L (3.5-5.1)
[2016-08-31 06:55] LABS: BICARBONATE 25.6 MEQ/L (21.0-32.0)
[2016-08-31 07:24] LABS: ACANTHOCYTES 2+ (NORMAL); KERATOCYTES 1+ (NORMAL); OVALOCYTES 1+ (NORMAL)
[2016-08-31 07:25] LABS: PLATELET ESTIMATE SMEAR LOW (NORMAL); PLATELET MORPHOLOGY NORMAL (NORMAL); SCAN/DIFF AUTO DIFF CONFIRMED
[2016-08-31] MEDS: SODIUM CHLORIDE 0.9% FLUSH 10 ML FLUSH IV FLUSH SCH ×2 (09:00→21:00)
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
--- NOTE | 2016-08-31 09:25 | MG ---
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 MEDICATIONS Norvasc, Pepcid, Synthroid. DESCRIPTION When the patient was awake the background activity was 8-9 Hz alpha, located posteriorly, attenuates to eye opening bilaterally and symmetrically. Superimposed by excess beta activity. During the recording the patient became drowsy with slowing, the posterior background rhythm is replaced by 6-7 Hz theta. The patient transitioned to stage II sleep with the appearance of vertex wave, K-complexes and sleep spindles. Photic stimulation did not elicit a driving response. Hyperventilation was not done. There were no electrographic seizures or epileptiform discharges noted during the recording. INTERPRETATION This is an normal awake and sleep EEG recording. Excess beta activity is a nonspecific finding that may be related to medication side effects such as benzos and barbiturates. Absence of electrographic seizures or epileptiform discharges does not exclude a diagnosis of epilepsy, clinical correlation is recommended. Danielle Bundy MD RGO/LAWANDA /7:37 AM /9:18 AM MTDD
--- NOTE | 2016-08-31 10:26 | HHI.PR ---
Subjective Remarks sr Objective Vital Signs Date Time Temp Pulse Resp B/P Pulse Ox O2 Delivery O2 Flow Rate FiO2 08/31/16 08:00 96.8 63 16 160/78 98 08/31/16 04:00 96.8 60 18 153/64 96 08/31/16 00:00 96.9 68 20 168/68 96 149/80 123/68 08/30/16 20:00 96.7 82 20 142/82 97 161/85 136/80 08/30/16 19:52 70 08/30/16 16:00 97.2 71 18 157/78 95 167/79 151/80 08/30/16 12:00 96.8 68 18 145/77 96 I/O 08/30/16 08/30/16 08/30/16 08/31/16 08/31/16 08/31/16 07:00 15:00 23:00 07:00 15:00 23:00 Intake Total 240 ml 625 ml 285 ml 843 ml Output Total 350 ml Balance 240 ml 625 ml -65 ml 843 ml Intake Oral 240 ml 625 ml 240 ml IV Total 285 ml 603 ml Output Urine Total 350 ml # Voids 1 2 2 3 # Bowel Movements 0 0 0 Result Diagram: 08/31/16 0630 08/31/16 0630 Other Results mri acute cva possible bilat definite left mra ? left mca dz neck some fmd ldl inc echo ef 40-45 mild as Objective Remarks awakel oriented not aphasic moves all Assessment and Plan Assessment and Plan imp fu holter sr so far lower ef needs STATIN and asa cta she and daughter deny any iodine allergy check standing bp OOB NEURO WILL FU Ramone Rausch MD Aug 31, 2016 10:26
[2016-08-31] MEDS: ASPIRIN EC 325 MG TABEC PO SCH (10:45)
[2016-08-31] MEDS: DOCUSATE SODIUM 50 MG/SENNA 8.6 MG TAB PO SCH ×2 (10:45→22:08)
[2016-08-31] MEDS: FAMOTIDINE 20 MG TAB PO SCH (10:46)
[2016-08-31 10:48] LABS: RAPID PLASMA REAGIN SCREEN NON-REACTIVE (NON-REACTVE)
--- NOTE | 2016-08-31 11:13 | HHI.PR ---
Subjective Remarks Seen at bedside. Alert. Denies any SOB. Chest tenderness noted were bruising present. Objective Vital Signs Date Time Temp Pulse Resp B/P Pulse Ox O2 Delivery O2 Flow Rate FiO2 08/31/16 08:00 96.8 63 16 160/78 98 08/31/16 04:00 96.8 60 18 153/64 96 08/31/16 00:00 96.9 68 20 168/68 96 149/80 123/68 08/30/16 20:00 96.7 82 20 142/82 97 161/85 136/80 08/30/16 19:52 70 08/30/16 16:00 97.2 71 18 157/78 95 167/79 151/80 08/30/16 12:00 96.8 68 18 145/77 96 I/O 08/30/16 08/30/16 08/30/16 08/31/16 08/31/16 08/31/16 07:00 15:00 23:00 07:00 15:00 23:00 Intake Total 240 ml 625 ml 285 ml 843 ml Output Total 350 ml Balance 240 ml 625 ml -65 ml 843 ml Intake Oral 240 ml 625 ml 240 ml IV Total 285 ml 603 ml Output Urine Total 350 ml # Voids 1 2 2 3 # Bowel Movements 0 0 0 Result Diagram: 08/31/16 0630 08/31/16 0630 Imaging Last 72 hours Impressions Liver Ultrasound 08/31/16 0000 Signed Impressions: Service Date/Time: Wednesday, August 31, 2016 08:21 - CONCLUSION: 1. 6 mm gallstone in the gallbladder. No wall thickening or pericholecystic fluid. 2. Small left pleural effusion. Naldo Spring MD Neck Magnetic Resonance Angiography 08/30/16 1441 Signed Impressions: Service Date/Time: August 19:36 - CONCLUSION: 1. 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 This does not generate a hemodynamically significant stenosis. 2. Stenosis of the left vertebral artery with a patent right vertebral artery. Zaid Coy Jr., MD Head Magnetic Resonance Angiography 08/30/161440 Signed Impressions: Service Date/Time: August 19:36 - CONCLUSION: 1. Atherosclerotic disease with areas of luminal narrowing involving the left M1 and left P2. Zaid Coy Jr., MD Brain MRI 08/30/16 0854 Signed Impressions: Service Date/Time: August 11:00 - CONCLUSION: 1. There is a focal area restricted diffusion in the left frontal periventricular white matter characteristic of a recent ischemia. 2. Chronic changes are present including generalized atrophy and chronic periventricular and subcortical white matter and ischemic demyelination. There is also encephalomalacia in the right frontal lobe and left occipital lobe. Julito Dailey MD Head CT 08/29/16 0903 Signed Impressions: Service Date/Time: Monday, August 29, 2016 09:30 - CONCLUSION: Age-related findings and chronic ischemic findings. No acute intracranial findings. Naldo Spring MD Pelvis X-Ray 08/29/16 0000 Signed Impressions: Service Date/Time: Monday, August 29, 2016 09:32 - CONCLUSION: 1. Old proximal left femur fracture status post ORIF. 2. No acute fracture identified. Sacrum is obscured by bowel gas and stool. Naldo Spring MD Chest X-Ray 08/29/16 0000 Signed Impressions: Service Date/Time: Monday, August 29, 2016 11:14 - CONCLUSION: Negative chest for acute disease. Riky Sams MD FACR Objective Remarks GENERAL: Alert and cooperative SKIN: Warm and dry. Bruising noted on chest wall HEAD: Normocephalic. EYES: No scleral icterus. No injection or drainage. NECK: Supple, trachea midline. No JVD or lymphadenopathy. CARDIOVASCULAR: Regular rate and rhythm without murmurs, gallops, or rubs. RESPIRATORY: Breath sounds equal bilaterally. No accessory muscle use. GASTROINTESTINAL: Abdomen soft, non-tender, nondistended. MUSCULOSKELETAL: No cyanosis, or edema. BACK: Nontender without obvious deformity. No CVA tenderness. Medications and IVs Current Medications Medications (Trade) Dose Ordered Sig/Terence Route Start Time Stop Time Status Last Admin (NS Flush) 2 ml UNSCH PRN IV FLUSH 08/29/16 11:30 (NS Flush) 2 ml BID IV FLUSH 08/29/16 21:00 08/30/16 08:21 (Tylenol) 650 mg Q4H PRN PO 08/29/16 11:30 (Zofran Inj) 4 mg Q6H PRN IVP 08/29/16 11:30 (Lovenox Inj) 40 mg Q24H SQ 08/29/16 13:00 Hold 08/29/16 14:22 (Narcan Inj) 0.4 mg UNSCH PRN IV 08/29/16 11:30 (Kinga-Colace) 1 tab BID PO 08/29/16 21:00 08/31/16 10:45 (Milk Of Magnesia Liq) 30 ml Q12H PRN PO 08/29/16 11:30 (Senokot) 17.2 mg Q12H PRN PO 08/29/16 11:30 (Dulcolax Supp) 10 mg DAILY PRN RECTAL 08/29/16 11:30 (Lactulose Liq) 30 ml DAILY PRN PO 08/29/16 11:30 (Synthroid) 50 mcg DAILY@06 PO 08/30/16 06:00 08/31/16 06:27 (Norvasc) 10 mg DAILY PO 08/30/16 09:00 08/31/16 10:45 (Pepcid) 10 mg BID PO 08/30/16 21:00 08/31/16 10:46 (Pill Splitter) 1 ea UNSCH PRN OTHER 08/30/16 14:15 Aspirin 325 mg 325 mg DAILY PO 08/30/16 15:00 08/31/16 10:45 (NS 1000 ml Inj) 1,000 ml @ 75 mls/hr [id number] IV 08/30/16 14:41 08/31/16 06:27 Assessment and Plan Problem List: (1) Falls frequently Status: Acute Plan: Participating in PT (2) Altered mental status Status: Acute Plan: Patient is alert and oriented today. Neurology consulted and managing. MRI with acute CVA possible bilateral definite left. MRA with possible left MCA disease. (3) Hematuria Status: Acute Plan: Moderate amount of Microscopic blood noted in UA. Could be related to falls/trauma. No dysuria or suprapubic discomfort noted. Urology consulted and recommended follow up outpatient (4) Hyponatremia Status: Acute Plan: Sodium yesterday 131 improved to 134 today. Will monitor (5) Thrombocytopenia Status: Acute Plan: Plts improved to 70 this AM up from 60. Hematology consulted and managing. Blood work pending. Recommended to medication that may contribute to thrombocytopenia. Pepcid discontinued. Patient is on ASA per neurology so will check with neuro. Assessment and Plan Assessment and plan discussed with Dr. Pink. Discussed Condition With Nursing Discharge Planning [facility] rehab Physician Attestation I and the [employer] have both examined this patient and reviewed this note and I agree with these findings and plan of care. Timmy Pink DO Problem Qualifiers (1) Altered mental status: Qualified Code: R41.82 - Altered mental status, unspecified altered mental status type Devi Parker [facility] Aug 31, 2016 11:13
[2016-08-31 13:37] LABS: ANA SCREEN POS (NEG)
--- NOTE | 2016-08-31 18:08 | PD.ONC.PN ---
Subjective Subjective Remarks I want to sit up to have dinner. 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 Objective Data Date Time Temp Pulse Resp B/P Pulse Ox O2 Delivery O2 Flow Rate FiO2 08/31/16 16:00 96.4 78 18 143/77 97 140/70 129/70 08/31/16 12:00 97.8 71 17 156/73 95 08/31/16 08:00 96.8 63 16 160/78 98 08/31/16 04:00 96.8 60 18 153/64 96 08/31/16 00:00 96.9 68 20 168/68 96 149/80 123/68 08/30/16 20:00 96.7 82 20 142/82 97 161/85 136/80 08/30/16 19:52 70 08/31/16 08/31/16 08/31/16 07:00 15:00 23:00 Intake Total 843 ml 650 ml Balance 843 ml 650 ml Result Diagram: 08/31/16 0630 08/31/16 0630 Laboratory Results Laboratory Tests Test 08/31/16 06:30 White Blood Count 4.5 TH/MM3 Red Blood Count 4.07 MIL/MM3 Hemoglobin 11.7 GM/DL Hematocrit 35.7 % Mean Corpuscular Volume 87.7 FL Mean Corpuscular Hemoglobin 28.8 PG Mean Corpuscular Hemoglobin 32.8 % Concent Red Cell Distribution Width 13.6 % Platelet Count 70 TH/MM3 Mean Platelet Volume 7.8 FL Neutrophils (%) (Auto) 46.1 % Lymphocytes (%) (Auto) 34.4 % Monocytes (%) (Auto) 13.2 % Eosinophils (%) (Auto) 5.9 % Basophils (%) (Auto) 0.4 % Neutrophils # (Auto) 2.1 TH/MM3 Lymphocytes # (Auto) 1.5 TH/MM3 Monocytes # (Auto) 0.6 TH/MM3 Eosinophils # (Auto) 0.3 TH/MM3 Basophils # (Auto) 0.0 TH/MM3 CBC Comment AUTO DIFF Differential Comment AUTO DIFF CONFIRMED Platelet Estimate LOW Platelet Morphology Comment NORMAL Ovalocytes 1+ Acanthocytes 2+ Keratocytes 1+ Sodium Level 138 MEQ/L Potassium Level 3.8 MEQ/L Chloride Level 105 MEQ/L Carbon Dioxide Level 25.6 MEQ/L Anion Gap 7 MEQ/L Blood Urea Nitrogen 11 MG/DL Creatinine 0.60 MG/DL Estimat Glomerular Filtration 95 ML/MIN Rate Random Glucose 88 MG/DL Calcium Level 7.9 MG/DL Imaging Studies Last 24 hours Impressions Liver Ultrasound 08/31/16 0000 Signed Impressions: Service Date/Time: Wednesday, August 31, 2016 08:21 - CONCLUSION: 1. 6 mm gallstone in the gallbladder. No wall thickening or pericholecystic fluid. 2. Small left pleural effusion. Naldo Spring MD Administered Medications Medications (Trade) Dose Ordered Sig/Terence Route PRN Reason Start Time Stop Time Status Last Admin Dose Admin Sodium Chloride (NS Flush) 2 ml BID IV FLUSH 08/29/16 21:00 08/31/16 09:00 Enoxaparin Sodium (Lovenox Inj) 40 mg Q24H SQ 08/29/16 13:00 Hold 08/29/16 14:22 Senna/Docusate Sodium (Kinga-Colace) 1 tab BID PO 08/29/16 21:00 08/31/16 10:45 Levothyroxine Sodium (Synthroid) 50 mcg DAILY@06 PO 08/30/16 06:00 08/31/16 06:27 Amlodipine Besylate (Norvasc) 10 mg DAILY PO 08/30/16 09:00 08/31/16 10:45 Aspirin 325 mg 325 mg DAILY PO 08/30/16 15:00 08/31/16 10:45 Sodium Chloride (NS 1000 ml Inj) 1,000 ml @ 75 mls/hr [id number] IV 08/30/16 14:41 08/31/16 06:27 Objective Remarks GENERAL: Thin elderly short haired, hard of hearing woman, well-developed patient. SKIN: Warm and dry. HEAD: Normocephalic. EYES: No scleral icterus. No injection or drainage. NECK: Supple, trachea midline. No JVD or lymphadenopathy. LYMPHATIC: No adenopathy. CARDIOVASCULAR: Regular rate and rhythm without murmurs. RESPIRATORY: Breath sounds equal bilaterally. No accessory muscle use. GASTROINTESTINAL: Abdomen soft, non-tender, nondistended. EXTREMITIES: No cyanosis, or edema. MUSCULOSKELETAL: Adequate muscle tone. Assessment/Plan Problem List: (1) Thrombocytopenia Status: Chronic Plan: Noted thrombocytopenia since 2005. Smear review by pathology confirm low platelet count, suggest RBC findings artifact. No bleeding. Differential include ITP. Unlikely microangiopathic hemolytic process. CE positive, unclear clinical significance ? SLE Consider MDS but no anemia, no clear dysplasia. No symptoms. Platelet improved 70K today. Assessment 85 y/o female with thrombocytopenia s/p fall. Plan 1. Follow platelet count, no specific therapy needed. 2. Pt may need BM bx as out pt 3. FU with Dr. Cavanaugh on DC. Poly Reynoso MD Aug 31, 2016 18:08
[2016-08-31] MEDS: predniSONE 50 MG TAB PO SCH (22:08)
[2016-08-31 23:00] LABS: ALBUMIN SPE 3.61 GM/DL (3.50-5.00); ALPHA 1 GLOBULIN 0.24 GM/DL (0.11-0.29); ALPHA 2 GLOBULIN 0.51 GM/DL (0.22-1.00); BETA GLOBULINS (SPE) 0.6 GM/DL (0.53-1.03)
[2016-09-01] VITALS (9 sets, daily range): BP systolic 127–198; BP diastolic 73–94; PULSE 69–92; RESP 16–19; TEMP 96.1–98.9; O2SAT 96–98
[2016-09-01] MEDS: predniSONE 50 MG TAB PO SCH ×2 (03:12→08:20)
[2016-09-01] MEDS: LEVOTHYROXINE SODIUM 50 MCG TAB PO SCH (05:51)
[2016-09-01] MEDS ORDERED: LORATADINE 10 MG TAB PO ONE (08:00)
[2016-09-01] MEDS: DOCUSATE SODIUM 50 MG/SENNA 8.6 MG TAB PO SCH ×2 (08:17→21:00)
[2016-09-01] MEDS: ASPIRIN EC 325 MG TABEC PO SCH (08:17)
[2016-09-01] MEDS: SODIUM CHLORIDE 0.9% FLUSH 10 ML FLUSH IV FLUSH SCH ×2 (08:18→21:00)
[2016-09-01] MEDS: SODIUM CHLOR 0.9% 1000 ML INJ 1,000 ML IV SCH (08:19)
[2016-09-01] MEDS ORDERED: LORazepam 0.5 MG TAB PO ONE (09:00)
[2016-09-01] MEDS ORDERED: IOHEXOL 350 MG/ML 10 ML VIAL (for RAD DIAG) IV ONE (10:07)
--- NOTE | 2016-09-01 11:09 | HHI.PR ---
Subjective Remarks feeling a bit better still not ambulating well await ct reports [facility] Objective Vital Signs Date Time Temp Pulse Resp B/P Pulse Ox O2 Delivery O2 Flow Rate FiO2 09/01/16 08:00 97.4 76 18 198/94 96 09/01/16 04:45 96.1 76 16 144/83 97 09/01/16 00:51 98.0 76 18 142/73 98 08/31/16 23:00 75 08/31/16 21:10 97.9 71 16 136/68 99 08/31/16 20:00 78 08/31/16 20:00 70 08/31/16 16:00 96.4 78 18 143/77 97 140/70 129/70 08/31/16 12:00 97.8 71 17 156/73 95 I/O 08/31/16 08/31/16 08/31/16 09/01/16 09/01/16 09/01/16 07:00 15:00 23:00 07:00 15:00 23:00 Intake Total 843 ml 650 ml Balance 843 ml 650 ml Intake Oral 240 ml 650 ml IV Total 603 ml # Voids 3 4 3 # Bowel Movements 0 0 0 Result Diagram: 08/31/16 0630 08/31/16 0630 Imaging Reported Meds & Active Scripts Active Reported Ferrous Sulfate DR (Ferrous Sulfate) 324 Mg Tabdr 325 Mg PO DAILY Levothyroxine (Levothyroxine Sodium) 50 Mcg Tab 50 Mcg PO DAILY Objective Remarks GENERAL: SKIN: Warm and dry. HEAD: Atraumatic. Normocephalic. EYES: Pupils equal and round. No scleral icterus. No injection or drainage. ENT: No nasal bleeding or discharge. Mucous membranes pink and moist. NECK: Trachea midline. No JVD. CARDIOVASCULAR: Regular rate and rhythm. RESPIRATORY: No accessory muscle use. Clear to auscultation. Breath sounds equal bilaterally. GASTROINTESTINAL: Abdomen soft, non-tender, nondistended. Hepatic and splenic margins not palpable. MUSCULOSKELETAL: Extremities without clubbing, cyanosis, or edema. previous r femur orif with short leg NEUROLOGICAL: Awake and alert. No obvious cranial nerve deficits. Motor grossly within normal limits. Five out of 5 muscle strength in the arms and legs. Normal speech. PSYCHIATRIC: Appropriate mood and affect; insight and judgment normal. Medications and IVs Current Medications IV Flush 2 ml 2 ml UNSCH PRN IV FLUSH FLUSH AFTER USING IV ACCESS; Start at 09:15; Stop 08/29/16 at 12:33; Status DC Sodium Chloride (NS 1000 ml Inj) 1,000 ml @ 1,000 mls/hr Q1H IV Last administered on 08/29/16 09:03; Start 08/29/16 at 09:03; Stop 08/29/16 at 10:02 ; Status DC Sodium Chloride (NS Flush) 2 ml UNSCH PRN IV FLUSH FLUSH AFTER USING IV ACCESS ; Start 08/29/16 at 11:30 Sodium Chloride (NS Flush) 2 ml BID IV FLUSH Last administered on 08/31/16 09: 00; Start 08/29/16 at 21:00 Acetaminophen (Tylenol) 650 mg Q4H PRN PO TEMP > 100.4; Start 08/29/16 at 11:30 Ondansetron HCl (Zofran Inj) 4 mg Q6H PRN IVP NAUSEA OR VOMITING; Start at 11:30 Enoxaparin Sodium (Lovenox Inj) 40 mg Q24H SQ Last administered on 08/29/16 14 :22; Start 08/29/16 at 13:00; Status Hold Naloxone HCl (Narcan Inj) 0.4 mg UNSCH PRN IV SEE LABEL COMMENTS; Start at 11:30 Senna/Docusate Sodium (Kinga-Colace) 1 tab BID PO Last administered on 09/01/16 08:17; Start 08/29/16 at 21:00 Magnesium Hydroxide (Milk Of Magnesia Liq) 30 ml Q12H PRN PO MILD - MODERATE CONSTIPATION; Start 08/29/16 at 11:30 Sennosides (Senokot) 17.2 mg Q12H PRN PO MODERATE - SEVERE CONSTIPATION; Start 08/29/16 at 11:30 Bisacodyl (Dulcolax Supp) 10 mg DAILY PRN RECTAL SEVERE CONSITIPATION; Start at 11:30 Lactulose (Lactulose Liq) 30 ml DAILY PRN PO SEVERE CONSITIPATION; Start at 11:30 Levothyroxine Sodium (Synthroid) 50 mcg DAILY@06 PO Last administered on 05:51; Start 08/30/16 at 06:00 Amlodipine Besylate (Norvasc) 10 mg DAILY PO Last administered on 09/01/16 08: 17; Start 08/30/16 at 09:00 Famotidine (Pepcid) 20 mg BID PO Last administered on 08/30/16 08:21; Start 08/30/16 at 09:00; Stop 08/30/16 at 14:11; Status DC Gadodiamide (Omniscan Pf Inj) 9 ml STK-MED ONCE IV Last administered on 13:12; Start 08/30/16 at 13:12; Stop 08/30/16 at 13:13; Status DC Famotidine (Pepcid) 10 mg BID PO Last administered on 08/31/16 10:46; Start 08/30/16 at 21:00; Stop 08/31/16 at 11:16; Status DC Miscellaneous (Pill Splitter) 1 ea UNSCH PRN OTHER SEE LABEL COMMENTS; Start at 14:15 Aspirin 325 mg 325 mg DAILY PO Last administered on 09/01/16 08:17; Start at 15:00 Sodium Chloride (NS 1000 ml Inj) 1,000 ml @ 75 mls/hr [id number] IV Last administered on 09/01/16 08:19; Start 08/30/16 at 14:41 Gadodiamide (Omniscan Pf Inj) 20 ml STK-MED ONCE IV Last administered on 19:47; Start 08/30/16 at 19:47; Stop 08/30/16 at 19:48; Status DC Prednisone (Deltasone) 50 mg DAILY@02,08,20 PO Last administered on 09/01/16 08 :20; Start 08/31/16 at 20:00; Stop 09/01/16 at 08:01; Status DC Loratadine (Claritin) 10 mg ONCE ONCE PO Last administered on 09/01/16 08:17; Start 09/01/16 at 08:00; Stop 09/01/16 at 08:01; Status DC Lorazepam (Ativan) 0.5 mg ONCE ONCE PO Last administered on 09/01/16 08:17; Start 09/01/16 at 09:00; Stop 09/01/16 at 09:01; Status DC Iohexol (Omnipaque 350 Inj) 99 ml STK-MED ONCE IV Last administered on t 10:07; Start 09/01/16 at 10:07; Stop 09/01/16 at 10:08; Status DC Assessment and Plan Problem List: (1) Falls frequently Status: Acute Plan: await results of imaging head and nect ct pending Assessment and Plan fall with sternal bruising Discussed Condition With family wishes [facility]charge Planning to [facility] once clear by neuro and heme onc Timmy Pink DO Sep 01, 2016 11:09
--- NOTE | 2016-09-01 11:21 | RADHPO ---
EXAM DATE/TIME: 09/01/2016 09:39 [facility] COMPARISON: MRA BRAIN W/O CONTRAST, August 30, 2016, 19:36. INDICATIONS : Recurrent falls,stroke. IV CONTRAST: 99 cc Omnipaque 350 (iohexol) IV RADIATION DOSE: 43.08 CTDIvol (mGy) MEDICAL HISTORY : UTI, Old trauma SURGICAL HISTORY : None. ENCOUNTER: Initial ACUITY: 2 days PAIN SCALE: 5/10 LOCATION: Bilateral cranial Patient was premedicated for underlying contrast media allergy. TECHNIQUE: Volumetric scanning was performed using a multi-row detector CT scanner. The data was post processed with a variety of visualization algorithms including full volume maximum intensity projection, multi -planar sliding thin slab reformation, curved planar reformation, and surface rendering techniques. Using automated exposure control and adjustment of the mA and/or kV according to patient size, radiat ion dose was kept as low as reasonably achievable to obtain optimal diagnostic quality images. FINDINGS: There is excellent visualization of the major intracranial arteries out to the second-order branch ve ssels. 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 Abnormality measures 3 mm in length. Focal stenosis of the distal M1 segment of the le ft MCA is also again seen. This finding is less prominent than on the MRA examination. It measures 3 mm in length and results in mild stenosis. No other significant interval change from MRA. CONCLUSION: High-grade stenosis left MANAGER SUBWAY and mild stenosis left MCA in the areas identified on prior MRA. Naldo Spring MD on September 01, 2016 at 11:13 Board Certified Radiologist. This report was verified electronically.
--- NOTE | 2016-09-01 11:25 | RADHPO ---
EXAM DATE/TIME: 09/01/2016 09:39 [facility] COMPARISON: MRA CAROTIDS W CONTRAST, August 30, 2016, 19:36. INDICATIONS : Recurrent falls,stroke. IV CONTRAST: 99 cc Omnipaque 350 (iohexol) IV ; Cumulative dose for multiple exams. RADIATION DOSE: 43.08 CTDIvol (mGy) ; Combined studies MEDICAL HISTORY : UTI, Chest pain, old trauma SURGICAL HISTORY : None. ENCOUNTER: Initial ACUITY: 2 days PAIN SCALE: 5/10 LOCATION: Bilateral cranial Elevated flow velocities and ICA/CCA ratios have been found to correlate with increased degrees of vessel stenosis, calculated as percentage of diameter relative to a normal segment of distal ICA/CCA. TECHNIQUE: Volumetric scanning was performed using a multirow detector CT scanner. The data was post processed with a variety of visualization algorithms including full-volume maximum intensity projection, multip lanar sliding thin-slab reformation, curved-planar reformation, and surface-rendering techniques. Us ing automated exposure control and adjustment of the mA and/or kV according to patient size, radiatio n dose was kept as low as reasonably achievable to obtain optimal diagnostic quality images. FINDINGS: AORTIC ARCH: There is a three-vessel origin of the great vessels from the aorta. No evidence of ostial narrowing. RIGHT CAROTID: Calcified plaque at the carotid bulb again seen. No significant stenosis. Beaded appearance of the mi d extracranial internal carotid artery again seen and unchanged. LEFT CAROTID: Calcified plaque at the carotid bulb again seen. No significant stenosis. Beaded appearance of the mi d extracranial internal carotid artery again seen and unchanged. VERTEBRALS: The vertebral arteries have a symmetric diameter. No stenotic lesions are seen. 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 Ath erosclerotic disease at the carotid bulbs but no evidence of hemodynamically significant stenosis. Naldo Spring MD on September 01, 2016 at 11:19 Board Certified Radiologist. This report was verified electronically.
[2016-09-02] VITALS (8 sets, daily range): BP systolic 120–182; BP diastolic 63–86; PULSE 70–84; RESP 16–20; TEMP 97–98; O2SAT 95–98
[2016-09-02] MEDS: LEVOTHYROXINE SODIUM 50 MCG TAB PO SCH (05:37)
[2016-09-02] MEDS: DOCUSATE SODIUM 50 MG/SENNA 8.6 MG TAB PO SCH ×2 (09:00→21:00)
--- NOTE | 2016-09-02 09:13 | HHI.PR ---
Subjective Remarks feeling a bit anxious today worried that she is urinating too much also has developing stage II-III on coccyx Objective Vital Signs Date Time Temp Pulse Resp B/P Pulse Ox O2 Delivery O2 Flow Rate FiO2 09/02/16 08:00 97.4 82 19 182/84 98 09/02/16 05:05 97.9 81 18 140/86 96 09/02/16 00:54 98.0 73 16 120/76 95 09/01/16 21:51 98.9 69 18 127/81 96 09/01/16 18:05 92 09/01/16 16:00 97.4 84 19 159/84 98 09/01/16 14:00 87 09/01/16 12:00 97.5 79 17 141/81 98 I/O 09/01/16 09/01/16 09/01/16 09/02/16 09/02/16 09/02/16 07:00 15:00 23:00 07:00 15:00 23:00 Intake Total 375 ml Balance 375 ml IV Total 375 ml # Voids 3 1 2 # Bowel Movements 0 2 Result Diagram: 08/31/1630 08/31/16 0630 Objective Remarks GENERAL: SKIN: Warm and dry. HEAD: Atraumatic. Normocephalic. EYES: Pupils equal and round. No scleral icterus. No injection or drainage. ENT: No nasal bleeding or discharge. Mucous membranes pink and moist. NECK: Trachea midline. No JVD. CARDIOVASCULAR: Regular rate and rhythm. RESPIRATORY: No accessory muscle use. Clear to auscultation. Breath sounds equal bilaterally. GASTROINTESTINAL: Abdomen soft, non-tender, nondistended. Hepatic and splenic margins not palpable. MUSCULOSKELETAL: Extremities without clubbing, cyanosis, or edema. previous r femur orif with short leg NEUROLOGICAL: Awake and alert. No obvious cranial nerve deficits. Motor grossly within normal limits. Five out of 5 muscle strength in the arms and legs. Normal speech. PSYCHIATRIC: anxious depressed SKIN coccyx with breakdown Medications and IVs Current Medications IV Flush 2 ml 2 ml UNSCH PRN IV FLUSH FLUSH AFTER USING IV ACCESS; Start at 09:15; Stop 08/29/16 at 12:33; Status DC Sodium Chloride (NS 1000 ml Inj) 1,000 ml @ 1,000 mls/hr Q1H IV Last administered on 08/29/16 09:03; Start 08/29/16 at 09:03; Stop 08/29/16 at 10:02 ; Status DC Sodium Chloride (NS Flush) 2 ml UNSCH PRN IV FLUSH FLUSH AFTER USING IV ACCESS ; Start 08/29/16 at 11:30 Sodium Chloride (NS Flush) 2 ml BID IV FLUSH Last administered on 09/01/16 21: 00; Start 08/29/16 at 21:00 Acetaminophen (Tylenol) 650 mg Q4H PRN PO TEMP > 100.4; Start 08/29/16 at 11:30 Ondansetron HCl (Zofran Inj) 4 mg Q6H PRN IVP NAUSEA OR VOMITING; Start at 11:30 Enoxaparin Sodium (Lovenox Inj) 40 mg Q24H SQ Last administered on 08/29/16 14 :22; Start 08/29/16 at 13:00; Status Hold Naloxone HCl (Narcan Inj) 0.4 mg UNSCH PRN IV SEE LABEL COMMENTS; Start at 11:30 Senna/Docusate Sodium (Kinga-Colace) 1 tab BID PO Last administered on 09/01/16 08:17; Start 08/29/16 at 21:00 Magnesium Hydroxide (Milk Of Magnesia Liq) 30 ml Q12H PRN PO MILD - MODERATE CONSTIPATION; Start 08/29/16 at 11:30 Sennosides (Senokot) 17.2 mg Q12H PRN PO MODERATE - SEVERE CONSTIPATION; Start 08/29/16 at 11:30 Bisacodyl (Dulcolax Supp) 10 mg DAILY PRN RECTAL SEVERE CONSITIPATION; Start at 11:30 Lactulose (Lactulose Liq) 30 ml DAILY PRN PO SEVERE CONSITIPATION; Start at 11:30 Levothyroxine Sodium (Synthroid) 50 mcg DAILY@06 PO Last administered on 05:37; Start 08/30/16 at 06:00 Amlodipine Besylate (Norvasc) 10 mg DAILY PO Last administered on 09/01/16 08: 17; Start 08/30/16 at 09:00 Famotidine (Pepcid) 20 mg BID PO Last administered on 08/30/16 08:21; Start 08/30/16 at 09:00; Stop 08/30/16 at 14:11; Status DC Gadodiamide (Omniscan Pf Inj) 9 ml STK-MED ONCE IV Last administered on 13:12; Start 08/30/16 at 13:12; Stop 08/30/16 at 13:13; Status DC Famotidine (Pepcid) 10 mg BID PO Last administered on 08/31/16 10:46; Start 08/30/16 at 21:00; Stop 08/31/16 at 11:16; Status DC Miscellaneous (Pill Splitter) 1 ea UNSCH PRN OTHER SEE LABEL COMMENTS; Start at 14:15 Aspirin 325 mg 325 mg DAILY PO Last administered on 09/01/16 08:17; Start at 15:00 Sodium Chloride (NS 1000 ml Inj) 1,000 ml @ 75 mls/hr [id number] IV Last administered on 09/01/16 08:19; Start 08/30/16 at 14:41; Stop 09/01/16 at 12:35; Status DC Gadodiamide (Omniscan Pf Inj) 20 ml STK-MED ONCE IV Last administered on 19:47; Start 08/30/16 at 19:47; Stop 08/30/16 at 19:48; Status DC Prednisone (Deltasone) 50 mg DAILY@02,08,20 PO Last administered on 09/01/16 08 :20; Start 08/31/16 at 20:00; Stop 09/01/16 at 08:01; Status DC Loratadine (Claritin) 10 mg ONCE ONCE PO Last administered on 09/01/16 08:17; Start 09/01/16 at 08:00; Stop 09/01/16 at 08:01; Status DC Lorazepam (Ativan) 0.5 mg ONCE ONCE PO Last administered on 09/01/16 08:17; Start 09/01/16 at 09:00; Stop 09/01/16 at 09:01; Status DC Iohexol (Omnipaque 350 Inj) 99 ml STK-MED ONCE IV Last administered on 10:07; Start 09/01/16 at 10:07; Stop 09/01/16 at 10:08; Status DC Assessment and Plan Problem List: (1) Falls frequently Status: Acute Plan: imaging shows cva and vascular disease doubt a candidate for revascularization at this age (2) Thrombocytopenia Status: Chronic Plan: improving will set fu apt with her heme onc dr MANZANARES after dc Assessment and Plan fall with sternal bruising depression anxiety add paxil decubidi consult wound care urinary frequency ck ua placement to [facility] when clear with neuro and heme onc Discussed Condition With patient and nursing Timmy Joseph DO Sep 02, 2016 09:13
[2016-09-02] MEDS: ASPIRIN EC 325 MG TABEC PO SCH (09:56)
[2016-09-02] MEDS: LORazepam 0.5 MG TAB PO PRN ×2 (09:56→16:39)
[2016-09-02] MEDS: SODIUM CHLORIDE 0.9% FLUSH 10 ML FLUSH IV FLUSH SCH ×2 (09:57→21:53)
[2016-09-02] MEDS ORDERED: PARoxetine 25 MG CONTROLLED RELEASE TAB PO ONE (10:00)
[2016-09-02] MEDS ORDERED: PARoxetine HCL 12.5 MG EXTENDED RELEASE TAB PO ONE (10:00)
[2016-09-02 11:07] LABS: AUTOMATED NEUTROPHIL # 5.5 TH/MM3 (1.8-7.7); BASOPHIL % 0.4 % (0.0-2.0); EOSINOPHIL % 0.5 % (0.0-4.0); HEMATOCRIT 36.3 % (35.0-46.0); HEMO FLAGS DIFF FINAL; LYMPH % 18.6 % (9.0-44.0); LYMPHOCYTE # 1.5 TH/MM3 (1.0-4.8); MEAN CELL VOLUME 87.2 FL (80.0-100.0); MEAN CORPUSCULAR HEMOGLOBIN 30.2 PG (27.0-34.0); MEAN CORPUSCULAR HGB CONC 34.7 % (32.0-36.0); MONO % 10.8 % (0.0-8.0); NEUT % 69.7 % (16.0-70.0); PLATELET COUNT 111 TH/MM3 (150-450); RED BLOOD COUNT 4.17 MIL/MM3 (4.00-5.30); RED CELL DISTRIBUTION WIDTH 13.7 % (11.6-17.2); WHITE BLOOD COUNT 7.9 TH/MM3 (4.0-11.0)
[2016-09-02 13:55] LABS: BLOOD, URINE NEG (NEG); GLUCOSE,URINE NEG (NEG); KETONE, URINE NEG (NEG); NITRITE,URINE NEG (NEG)
[2016-09-02 14:06] LABS: BACTERIA, URINE MANY /hpf; METHOD OF COLLECTION CLEAN CATCH; URINE COLOR YELLOW (YELLW/STRAW)
[2016-09-02 14:07] LABS: COMMENT (UR) CULTURE INDICATED; CULTURE IF INDICATED CULTURE INDICATED
--- NOTE | 2016-09-02 15:00 | HM ---
Date Performed: 08/30/2016 Time Performed: 21:30:00 HOOKUP DATE: 08/30/16 09:30:00 PM [facility] ANALYSIS START TIME: 08/30/2016 9:35:00 PM ANALYSIS END TIME: 08/31/2016 9:21:57 PM PATIENT AGE: 85 PATIENT HEIGHT: 66 PATIENT WEIGHT: 107 DRUG LIST: ROOM 8301 PATIENT DIAGNOSIS: RECURRENT FALLS AMS TEST NARRATIVE: The patient's average heart rate was 70 BPM. No episodes of tachycardia wer e noted. No episodes of bradycardia were noted. No pauses exceeding 2.0 seconds were noted. 2263 ventricular ectopics, which represented 2% of the total beat count, were noted. The highest cassandra tricular ectopic frequency occurred from 08:00 PM to 09:00 PM Fri. During this time 180 VE(s) occurr ed. Ventricular ectopics were observed as 2243 isolated beat(s) and as 10 couplet(s). No runs were noted. 91 supraventricular ectopics, which represented < 1% of the total beat count, were noted. The highest supraventricular ectopic frequency occurred from 10:00 PM to 11:00 PM [facility]. During this time 18 SVE(s) occurred. No episodes of ST depression (defined as -1.0 mm or more) were noted in channel 1. No episodes of ST depression (defined as -1.0 mm or more) were noted in channel 2. No ep isodes of ST depression (defined as -1.0 mm or more) were noted in channel 3. TEST INTERPRETATION: Patient has occasional isolated PACs with rare couplets and 1 run of three in a row and a heart rate of 100-110. No complex atrial arrhythmias are seen per no pauses. No heart blocks are seen. There are rare isolated PVCs with ten couplets present and no triplets or runs of ve ntricular tachycardia. No other significant arrhythmias are seen. There is no patient diary included. Overall, this patient has a relatively benign appearing holter monitor with occasional atrial ventri cular ectopy but no complex forms. Signed by : Joel Joy
[2016-09-03 01:27] VITALS: BP 129/70; PULSE 79; RESP 16; TEMP 97.8; O2SAT 97
[2016-09-03 04:00] VITALS: BP 137/85; PULSE 76; RESP 18; TEMP 98; O2SAT 96
[2016-09-03] MEDS: LEVOTHYROXINE SODIUM 50 MCG TAB PO SCH (06:15)
[2016-09-03 08:00] VITALS: BP 156/74; PULSE 72; PULSE 91; RESP 18; TEMP 96.4; O2SAT 97
[2016-09-03] MEDS ORDERED: ASPI325T33 PO (08:14)
[2016-09-03] MEDS ORDERED: ACET1TAB86 PO (08:14)
[2016-09-03] MEDS ORDERED: PARO12.5CR PO (08:14)
[2016-09-03] MEDS ORDERED: AMLO10 PO (08:14)
--- NOTE | 2016-09-03 08:15 | HHI.DS ---
Discharge Summary Admission Date Aug 31, 2016 at 09:47 Admitting Diagnosis Recurrent Falls, AMS Brief History pt has one leg short she missed the chair when sitting and fell to the floor she is very alert and remembers the incident well she did not pass out or faint . due to orthopedic and djd problems she has had other falls in the past CBC/BMP: 09/02/16 1050 08/31/16 0630 Significant Findings Laboratory Tests Test 09/02/16 09/02/16 10:50 13:21 Platelet Count 111 TH/MM3 (150-450) Monocytes (%) (Auto) 10.8 % (0.0-8.0) Prealbumin 14 MG/DL (20-40) Urine Bacteria MANY /hpf (NONE) PE at Discharge GENERAL: SKIN: Warm and dry. HEAD: Atraumatic. Normocephalic. EYES: Pupils equal and round. No scleral icterus. No injection or drainage. ENT: No nasal bleeding or discharge. Mucous membranes pink and moist. NECK: Trachea midline. No JVD. CARDIOVASCULAR: Regular rate and rhythm. RESPIRATORY: No accessory muscle use. Clear to auscultation. Breath sounds equal bilaterally. GASTROINTESTINAL: Abdomen soft, non-tender, nondistended. Hepatic and splenic margins not palpable. MUSCULOSKELETAL: Extremities without clubbing, cyanosis, or edema. previous r femur orif with short leg NEUROLOGICAL: Awake and alert. No obvious cranial nerve deficits. Motor grossly within normal limits. Five out of 5 muscle strength in the arms and legs. Normal speech. PSYCHIATRIC: anxious depressed SKIN coccyx with breakdown Pt Condition on Discharge: Stable Discharge Disposition: Discharge to SNF Discharge Instructions DIET: Follow Instructions for: As Tolerated, No Restrictions Speech Therapy-Diet Recommenda: Regular Activities you can perform: Regular-No Restrictions Activities to avoid: Driving for 24 hrs Additional Activity Instructio: oob assist only Timmy Pink DO Sep 03, 2016 08:15
[2016-09-03] MEDS ORDERED: CEFUROXIME AXETIL 500 MG TAB PO SCH (09:00)
[2016-09-03] MEDS: DOCUSATE SODIUM 50 MG/SENNA 8.6 MG TAB PO SCH (09:00)
[2016-09-03] MEDS ORDERED: PARoxetine HCL 12.5 MG EXTENDED RELEASE TAB PO SCH (09:00)
[2016-09-03] MEDS: ASPIRIN EC 325 MG TABEC PO SCH (09:54)
[2016-09-03] MEDS: SODIUM CHLORIDE 0.9% FLUSH 10 ML FLUSH IV FLUSH SCH (09:57)
[2016-09-03 12:00] VITALS: BP 139/88; PULSE 82; RESP 17; TEMP 96.9; O2SAT 98
[2016-09-04 17:53] LABS: ALPHA-TOCOPHEROL 13.3 mg/L (5.7-19.9); BETA-GAMMA-TOCOPHEROL LESS THAN 1.0 mg/L (< 4.3)
[2016-09-05 15:59] LABS: BIOAVAILABLE TESTOSTERONE <0.5 ng/dL (())
== END 2016-09-03 16:10 | DRG 65 ==
LOC: PHEFT 08:49 → PHEDA 10:56 → PH3A 12:26 → OBSVTOIN 08-31 09:47
PROVIDERS: ADMIT Family Medicine; ATTEND Family Medicine
DX: I63.512 Cerebral infarction due to unspecified occlusion or stenosis of left middle cerebral artery (principal); E87.1 Hypo-osmolality and hyponatremia; L89.159 Pressure ulcer of sacral region, unspecified stage; D69.6 Thrombocytopenia, unspecified; G62.9 Polyneuropathy, unspecified; R31.29 Other microscopic hematuria; R54 Age-related physical debility; E03.9 Hypothyroidism, unspecified; M21.372 Foot drop, left foot; M19.90 Unspecified osteoarthritis, unspecified site; R29.6 Repeated falls; H35.30 Unspecified macular degeneration; S20.219A Contusion of unspecified front wall of thorax, initial encounter; W07.XXXA Fall from chair, initial encounter; Y92.009 Unspecified place in unspecified non-institutional (private) residence as the place of occurrence of the external cause; F32.9 Major depressive disorder, single episode, unspecified; F41.9 Anxiety disorder, unspecified; R35.0 Frequency of micturition
CPT/HCPCS: 70450; 70496; 70498; 70544; 70548; 70553; 71010; 72141; 72170; 76705; 80048; 80053; 80061; 81001; 82550; 82552; 82607; 82746; 84134; 84165; 84402; 84403; 84425; 84436; 84439; 84443; 84446; 84484; 85025; 85060; 85652; 86038; 86039; 86592; 87077; 87086; 87186; 93225; 93226; 93306; 95819; 96360; A9579; G0378; G8987-GO; G8987-GP; G8988-GO; G8988-GP; J1650; J7030; J7512; P9612; Q9967

== ENCOUNTER 2018-01-14 19:54 | Inpatient (IN) ==
--- NOTE | 2018-01-14 20:29 | ED ---
HPI General Chief complaint: Fall Stated complaint: Fall Time Seen by Provider: 01/14/18 20:16 Source: patient and family Mode of arrival: ambulatory Limitations: altered mental status History of Present Illness HPI narrative: 87yo F with PMH of dementia and hypothyroid was brought in by her daughter who is the power of attorney lawyer for evaluation of fall today. Pt was found waving a tissue on the floor next to the deck and pt said she fell. She is a poor historian. There is left wrist swelling and pain. Unknown if she hit her head. Pt's BP was low at 85/61 at triage and tachycardic at 116bpm. Pt is still tachycardic in the medical bed but repeat BP is 161/98. Daughter said her urine has been smelling bad and looking dark for a few days. Related Data Home Medications Medication Instructions Recorded Confirmed levothyroxine 25 mcg PO DAILY 01/14/18 01/14/18 Allergies Allergy/AdvReac Type Severity Reaction Status Date / Time diatrizoate meglumine Allergy Unknown Unresponsiv Verified 01/14/18 20:27 e diphenhydramine Allergy Unknown Unresponsiv Verified 01/14/18 20:27 e gadobenic acid Allergy Unknown Unresponsiv Verified 01/14/18 20:27 e gadodiamide Allergy Unknown Unresponsiv Verified 01/14/18 20:27 e gadoteridol Allergy Unknown Unresponsiv Verified 01/14/18 20:27 e iodixanol Allergy Unknown Edema Verified 01/14/18 20:27 iohexol Allergy Unknown Edema Verified 01/14/18 20:27 Review of Systems ROS: all other systems reviewed are negative [facility] Social History Social History Substance History: No History of Abuse Second Hand Smoke Exposure: No Smoking Status: Never smoker How Often Do You Have a Drink Containing Alcohol: Never Recent Travel in [facility] within the Last 8 Weeks: No Recent Out of Country Travel within the Last 8 Weeks: No Exam Narrative Exam Narrative: GENERAL: 87yo F not in distress. SKIN: Focused skin assessment warm/dry. HEAD: Atraumatic. Normocephalic. EYES: Pupils equal and round. No scleral icterus. No injection or drainage. ENT: No nasal bleeding or discharge. Mucous membranes pink and moist. NECK: Trachea midline. No JVD. CARDIOVASCULAR: Irregular rate and rhythm. Tachycardic in the 110s-120s. No murmur appreciated. RESPIRATORY: No accessory muscle use. Clear to auscultation. Breath sounds equal bilaterally. GASTROINTESTINAL: Abdomen soft, non-tender, nondistended. MUSCULOSKELETAL: No obvious deformities. No clubbing. No cyanosis. No edema. NEUROLOGICAL: Awake and alert. No obvious cranial nerve deficits. Motor grossly within normal limits in all extremities. Sensation intact. Normal speech. Course Initial Documented Vital Signs Temperature 98.5 F 01/14/18 19:56 Pulse Rate 116 H 01/14/18 19:56 Respiratory Rate 18 01/14/18 19:56 Blood Pressure 85/61 L 01/14/18 19:56 Pulse Oximetry 97 01/14/18 19:56 Last Documented Vital Signs Temperature 98.5 F 01/14/18 19:56 Pulse Rate 99 H 01/14/18 22:22 Respiratory Rate 20 01/14/18 22:22 Blood Pressure 167/88 H 01/14/18 22:22 Pulse Oximetry 97 01/14/18 19:56 Medical Decision Making MDM Narrative Medical decision making narrative: 87yo F with left wrist deformity after a fall today. Pt has dementia and is a poor historian. Initial vital signs at triage showed hypotension and tachycardia. In the medical bed, BP is normal and pt has afib up to 125bpm. Pt given cardizem 10mg IV and HR has been in the 80s. Labs reviewed, no leukocytosis. H/H normal. Thrombocytopenia at 97, 000. This is not new. BUN/creatinine elevated at 22/1.10. 2 to 1 ratio. Pt given NS IVF. Lactic acid normal. Xray left wrist showed comminuted intraarticular fracture of distal radius and ulnar. Discussed with orthopedic surgeon Dr. Patiño who recommends splint and outpatient follow up. CT brain showed no acute findings. UA still pending. Will admit pt for new onset afib RVR. Discussed with Dr. Santos and accepted to her service. Medical Screen Exam Complete: Yes Emergency Medical Condition: Yes Differential Diagnosis Differential Diagnosis: Fracture vs. contusion vs. new onset afib vs. dehydration vs. electrolyte abnormality Lab Data Result diagrams: 01/14/18 21:00 01/14/18 21:00 Lab Results 01/14/18 01/14/18 01/14/18 Range/Units 21:00 21:00 21:00 CBC w Diff Slide review pending WBC 7.0 (4.0-11.0) th/mm3 RBC 4.12 (4.00-5.30) mil/mm3 Hgb 13.0 (11.6-15.3) gm/dL Hct 38.7 (35.0-46.0) % MCV 94.0 (80.0-100.0) fL MCH 31.6 (27.0-34.0) pg MCHC 33.7 (32.0-36.0) % RDW 13.0 (11.6-17.2) % Plt Count 97 L (150-450) th/mm3 MPV 7.8 (7.0-11.0) fL Neut % (Auto) 71.8 H (16.0-70.0) % Lymph % (Auto) 17.3 (9.0-44.0) % Sierra % (Auto) 9.7 H (0.0-8.0) % Eos % (Auto) 0.3 (0.0-4.0) % Baso % (Auto) 0.9 (0.0-2.0) % Neut # (Auto) 5.0 (1.8-7.7) th/mm3 Lymph # (Auto) 1.2 (1.0-4.8) th/mm3 Sierra # (Auto) 0.7 (0.0-0.9) th/mm3 Eos # (Auto) 0.0 (0.0-0.4) th/mm3 Baso # (Auto) 0.1 (0.0-0.2) th/mm3 WBC Differential . Diff Scan Auto diff confirmed Differential Comment . Platelet Estimate Low L (Normal) Platelet Morphology Normal (Normal) PT 10.7 (9.8-11.6) sec INR 1.1 Ratio APTT 27.0 (24.3-30.1) sec Sodium 139 (136-145) meq/L Potassium 3.8 (3.5-5.1) meq/L Chloride 104 (98-107) meq/L Carbon Dioxide 28.6 (21.0-32.0) meq/L Anion Gap 6 (5-15) meq/L BUN 22 H (7-18) mg/dL Creatinine 1.10 H (0.50-1.00) mg/dL Estimated GFR 47 L (>89) mL/min Random Glucose 108 H (74-106) mg/dL Lactic Acid (0.4-2.0) mmol/L Calcium 8.0 L (8.5-10.1) mg/dL TSH 3.870 H (0.358-3.740) uIU/mL 01/14/18 Range/Units 21:00 CBC w Diff WBC (4.0-11.0) th/mm3 RBC (4.00-5.30) mil/mm3 Hgb (11.6-15.3) gm/dL Hct (35.0-46.0) % MCV (80.0-100.0) fL MCH (27.0-34.0) pg MCHC (32.0-36.0) % RDW (11.6-17.2) % Plt Count (150-450) th/mm3 MPV (7.0-11.0) fL Neut % (Auto) (16.0-70.0) % Lymph % (Auto) (9.0-44.0) % Sierra % (Auto) (0.0-8.0) % Eos % (Auto) (0.0-4.0) % Baso % (Auto) (0.0-2.0) % Neut # (Auto) (1.8-7.7) th/mm3 Lymph # (Auto) (1.0-4.8) th/mm3 Sierra # (Auto) (0.0-0.9) th/mm3 Eos # (Auto) (0.0-0.4) th/mm3 Baso # (Auto) (0.0-0.2) th/mm3 WBC Differential Diff Scan Differential Comment Platelet Estimate (Normal) Platelet Morphology (Normal) PT (9.8-11.6) sec INR Ratio APTT (24.3-30.1) sec Sodium (136-145) meq/L Potassium (3.5-5.1) meq/L Chloride (98-107) meq/L Carbon Dioxide (21.0-32.0) meq/L Anion Gap (5-15) meq/L BUN (7-18) mg/dL Creatinine (0.50-1.00) mg/dL Estimated GFR (>89) mL/min Random Glucose (74-106) mg/dL Lactic Acid 1.3 (0.4-2.0) mmol/L Calcium (8.5-10.1) mg/dL TSH (0.358-3.740) uIU/mL Imaging Data Radiologist's impression: Head CT 01/14/18 20:23 CONCLUSION: No acute findings. Stable chronic white matter ischemic changes.. Wrist X-Ray 01/14/18 20:23 CONCLUSION: Distal radius and ulnar fractures as above. Discharge Plan Discharge Disposition Patient Disposition: 30 Still Patient Discharge Details Diagnosis: Atrial fibrillation with RVR, Fracture of wrist Physicians Team ED Provider: Shawna Nicole Primary Care Provider: Timmy Pink Attending Provider: Cindi Santos Status ED Status: Admitted Observation Patient
[2018-01-14] MEDS ORDERED: Sod Chloride 0.9% Inj 1,000 ML IV.SIG SCH (20:30)
--- NOTE | 2018-01-14 20:45 | XR ---
EXAM DATE: 01/14/2018 8:23 PM EDT AGE/SEX: 87 years / Female INDICATIONS: Pain in left wrist status post fall. CLINICAL DATA: This is the patient's initial encounter. Patient reports that signs and symptoms have been present for 1 day and indicates a pain score of 8/10. MEDICAL/SURGICAL HISTORY: None. None. COMPARISON: No prior exams available for comparison. FINDINGS: There are slightly comminuted intra-articular fractures of the distal radius and ulna with slight for eshortening. No dislocation. Bones are osteopenic. CONCLUSION: Distal radius and ulnar fractures as above. Electronically signed by: Derrell Farley MD 01/14/2018 8:44 PM EDT
[2018-01-14 21:05] LABS: Baso # (Auto) 0.1 th/mm3 (0.0-0.2); Baso % (Auto) 0.9 % (0.0-2.0); Eos % (Auto) 0.3 % (0.0-4.0); Hematocrit 38.7 % (35.0-46.0); Lymph # (Auto) 1.2 th/mm3 (1.0-4.8); Lymph % (Auto) 17.3 % (9.0-44.0); Mean Corpuscular HGB Conc 33.7 % (32.0-36.0); Mean Corpuscular Hemoglobin 31.6 pg (27.0-34.0); Mean Platelet Volume 7.8 fL (7.0-11.0); Mono # (Auto) 0.7 th/mm3 (0.0-0.9); Mono % (Auto) 9.7 % (0.0-8.0); Neut % (Auto) 71.8 % (16.0-70.0); Platelet Count 97 th/mm3 (150-450); Red Blood Count 4.12 mil/mm3 (4.00-5.30)
[2018-01-14 21:19] LABS: Potassium 3.8 meq/L (3.5-5.1)
[2018-01-14 21:22] LABS: Carbon Dioxide 28.6 meq/L (21.0-32.0)
--- NOTE | 2018-01-14 21:24 | CT ---
EXAM DATE: 01/14/2018 8:43 PM EDT AGE/SEX: 87 years / Female INDICATIONS: Trauma. Fall. CLINICAL DATA: This is the patient's initial encounter. Patient reports that signs and symptoms have been present for 1 day and indicates a pain score of 5/10. MEDICAL/SURGICAL HISTORY: Hypertension. None. RADIATION DOSE: 47.63 CTDI (mGy) COMPARISON: [facility], CT BRAIN W/O CONTRAST, 08/29/2016. . TECHNIQUE: CT of the head without contrast. Using automated exposure control and adjustment of the mA and/or kV according to patient size, radiation dose was kept as low as reasonably achievable to ob tain optimal diagnostic quality images. DICOM format image data is available electronically for revi ew and comparison. FINDINGS: Cerebrum: The ventricles are normal for age. No evidence of midline shift, mass lesion, hemorrhage or acute infarction. No extraaxial fluid collections are seen. Stable chronic white matter ischemic changes. Posterior Fossa: The cerebellum and brainstem are intact. The 4th ventricle is midline. The cerebe llopontine angle is unremarkable. Extracranial: The visualized portion of the orbits is intact. Skull: The calvaria is intact. No evidence of skull fracture. CONCLUSION: No acute findings. Stable chronic white matter ischemic changes.. Electronically signed by: Derrell Farley MD 01/14/2018 9:23 PM EDT
[2018-01-14 21:25] LABS: INR 1.1 Ratio; Prothrombin Time 10.7 sec (9.8-11.6)
[2018-01-14 21:34] LABS: Platelet Morphology Normal (Normal)
[2018-01-14 21:36] LABS: Thyroid Stimulating Hormone 3.87 uIU/mL (0.358-3.740)
[2018-01-14] MEDS: Enoxaparin Inj 100 MG/ML Syringe SQ SCH (22:35)
[2018-01-14 23:13] LABS: Bilirubin,Urine Negative (Negative); Clarity,Urine Clear (Clear); Color,Urine Yellow (Yellw/Straw); Glucose,Urine (UA) Negative (Negative); Leukocyte Esterase,Urine Negative (Negative); Nitrite,Urine Negative (Negative); Specific Gravity,Urine 1.015 (1.002-1.035); Urobilinogen,Urine 0.2 mg/dL (Less than 2)
[2018-01-14 23:17] LABS: RBC,Urine 0-3 /hpf (0-3); Squamous Epithelial Cell,Urine 0-5 /hpf (0-5); WBC,Urine 0-5 /hpf (0-5)
[2018-01-15] MEDS ORDERED: dilTIAZem 30 MG Tablet PO ONE (00:45)
[2018-01-15 07:29] LABS: Hematocrit 32.4 % (35.0-46.0); Hemoglobin 11.3 gm/dL (11.6-15.3); Mean Corpuscular HGB Conc 34.9 % (32.0-36.0); Mean Corpuscular Hemoglobin 32.2 pg (27.0-34.0); Mean Corpuscular Volume 92.3 fL (80.0-100.0); Mean Platelet Volume 8.1 fL (7.0-11.0); Platelet Count 92 th/mm3 (150-450); Red Blood Count 3.51 mil/mm3 (4.00-5.30); Red Cell Distribution Width 13.3 % (11.6-17.2); White Blood Count 5.1 th/mm3 (4.0-11.0)
[2018-01-15 07:45] LABS: Potassium 3.4 meq/L (3.5-5.1)
[2018-01-15 07:48] LABS: Calcium 7.6 mg/dL (8.5-10.1); Carbon Dioxide 26.4 meq/L (21.0-32.0)
[2018-01-15] MEDS: Enoxaparin Inj 100 MG/ML Syringe SQ SCH ×2 (09:15→22:58)
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
[2018-01-15] MEDS ORDERED: amLODIPine 5 MG Tablet PO SCH (17:00)
--- NOTE | 2018-01-15 17:05 | ECHRPT ---
Indication: ATRIAL FIB CONCLUSIONS The left ventricular systolic function is normal with an estimated ejection fraction of 60%. Normal left ventricular size. Mild concentric left ventricular hypertrophy. No regional wall motion abnormalities are present. The left atrial size is moderately dilated. Moderate thickening of the mitral valve leaflets. Moderate mitral valve regurgitation. Diffuse calcification of the aortic valve. Moderate aortic valve stenosis. Mild thickening of the tricuspid valve leaflets. There is mild tricuspid valve regurgitation. The estimated pulmonary arterial pressure is 44 mmHg. BP: / HR: Rhythm: Technical Quality: FINDINGS LEFT VENTRICLE The left ventricular systolic function is normal with an estimated ejection fraction of 60%. Normal left ventricular size. Mild concentric left ventricular hypertrophy. No regional wall motion abnormalities are present. RIGHT VENTRICLE Normal right ventricular size and systolic function. LEFT ATRIUM The left atrial size is moderately dilated. RIGHT ATRIUM The right atrial size is normal. ATRIAL SEPTUM Normal atrial septal thickness without atrial level shunting by limited color doppler interrogation. AORTA The aortic root and proximal ascending aorta are normal in size on limited imaging. MITRAL VALVE Moderate thickening of the mitral valve leaflets. Moderate mitral valve regurgitation. AORTIC VALVE Trileaflet aortic valve. Diffuse calcification of the aortic valve. Moderate aortic valve stenosis. Aortic valve area is .50 cm. Aortic valve mean gradient is 14 mmHg. TRICUSPID VALVE Mild thickening of the tricuspid valve leaflets. There is mild tricuspid valve regurgitation. The estimated pulmonary arterial pressure is 44 mmHg. PULMONARY VALVE Trivial pulmonary valve regurgitation. VESSELS The inferior vena cava was not well visualized. PERICARDIUM No pericardial effusion. Laci Ruff MD, FACC (Electronically Signed) Final Date:15 January 2018 17:05
[2018-01-15] MEDS: dilTIAZem CD 120 MG Capsule PO SCH (19:44)
--- NOTE | 2018-01-15 20:13 | MB ---
cc: Laci Ruff MD DATE: 01/15/2018 HISTORY OF PRESENT ILLNESS: Ms. Boss is an 87-year-old white female with history of hypertension, who was admitted yesterday after she was found by her daughter on the floor. She fell and fractured her left radius and ulna. She also fell about 2 weeks ago. She is supposed to transfer between wheelchair and bed. She thinks she tripped, but it is somewhat unclear if she possibly had a syncopal episode. She denies any chest pain or shortness of breath. She is mildly confused. She has a chief complaint of left upper extremity pain. PAST MEDICAL HISTORY: Positive for hypertension, dementia, left leg fracture, thyroid disease, urinary tract infection, dementia. MEDICATIONS: Include: 1. Amlodipine 5 mg a day. 2. Clonidine p.r.n. 3. Lovenox. 4. Hydrocodone. 5. The patient's only home medication is levothyroxine 25 mcg a day. ALLERGIES: IOHEXOL, GADOBENIC ACID. SOCIAL HISTORY: The patient does not smoke. She does not drink alcohol. FAMILY HISTORY: Negative for heart disease. REVIEW OF SYSTEMS: Otherwise negative. PHYSICAL EXAMINATION: VITAL SIGNS: Blood pressure 190/92, pulse 73 and regular. HEENT: Negative, 2+ carotid upstrokes, no bruits. LUNGS: Clear. HEART: Regular with no murmur or gallop. ABDOMEN: Soft. No bruits. EXTREMITIES: Without edema. 2+ pulses. Left upper extremity is immobilized. NEUROLOGIC: Grossly nonfocal. The patient is mildly confused. DIAGNOSTIC AND LABORATORY DATA: EKG was reviewed and showed atrial fibrillation with an increased ventricular response, left axis LVH with secondary ST-T changes. Hemoglobin 11.3, potassium 3.4, creatinine 0.8, TSH 3.7. Echocardiogram showed a preserved function with an ejection fraction of 60%, moderate mitral regurgitation, moderate aortic stenosis, mild tricuspid regurgitation and mild pulmonary hypertension. Telemetry now shows normal sinus rhythm. DIAGNOSES: 1. Paroxysmal atrial fibrillation. 2. Hypertension. 3. Recent fall. 4. Left upper extremity fracture. 5. Hypothyroidism. 6. Dementia. PLAN: Ms. Boss had episodes of atrial fibrillation with increased ventricular response. She also has been hypertensive. We will switch her amlodipine to diltiazem for better rate control, in case she has recurrent episodes of atrial fibrillation. I recommend to titrate her antihypertensive therapy. Full anticoagulation at this time has likely higher risk than benefit due to her recent falls. She may benefit from a daily aspirin. She is currently back in sinus rhythm. She will be monitored on telemetry. I will see her back in followup in our office after discharge. MD DANYELLE Mcarthur/an , 06:01 PM , 06:12 PM [email or web address]
--- NOTE | 2018-01-15 21:00 | ECG ---
Date Performed: 01/14/2018 Time Performed: 20:27:49 PTAGE: 87 years EKG: ATRIAL FIBRILLATION WITH RAPID VENTRICULAR RESPONSE MARKED LEFT AXIS DEVIATION INCOMPLETE R IGHT BUNDLE BRANCH BLOCK MODERATE VOLTAGE CRITERIA FOR LVH, CONSIDER NORMAL VARIANT POSSIBLE SEPTAL M YOCARDIAL INFARCTION MODERATE T-WAVE ABNORMALITY, CONSIDER LATERAL ISCHEMIA Since previous tracing, n o significant change noted ABNORMAL ECG PREVIOUS TRACING : 05/29/2012 19.38 DOCTOR: Pravin Song Interpretating Date/Time 01/15/2018 21:00:06
[2018-01-16] MEDS: dilTIAZem CD 120 MG Capsule PO SCH (08:25)
--- NOTE | 2018-01-16 08:55 | P.PNFP ---
Subjective Interval history: Denies pain, to LUE No Cp, SOB. Results - Labs Result diagrams: 01/15/18 06:35 01/15/18 06:35 - Imaging Head CT 01/14/18 20:23 CONCLUSION: No acute findings. Stable chronic white matter ischemic changes.. Wrist X-Ray 01/14/18 20:23 CONCLUSION: Distal radius and ulnar fractures as above. Physical Exam Vital signs: Vital Signs 01/15/18 09:14 01/15/18 12:00 01/15/18 16:00 Temperature 97.5 F L Pulse Rate 66 65 Respiratory Rate 17 20 Blood Pressure 183/86 H Pulse Oximetry 98 01/15/18 16:50 01/15/18 20:00 01/16/18 00:00 Temperature 98.5 F 98.4 F Pulse Rate 73 67 81 Respiratory Rate 20 18 Blood Pressure 190/92 H 89/52 L Pulse Oximetry 98 94 L 01/16/18 04:00 Temperature 96.5 F L Pulse Rate 86 Respiratory Rate 18 Blood Pressure 152/82 H Pulse Oximetry 96 Intake & Output 01/15/18 01/16/18 01/16/18 18:59 06:59 18:59 Intake Total 60 / 60 250 / 250 Output Total 700 / 700 Balance 60 / 60 -450 / -450 Weight 48.5 kg Intake: Oral 60 / 60 250 / 250 Output: Urine 700 / 700 Other: # Voids 1 Date of Last Bowel Movement 01/14/18 - Constitutional no acute distress - Routine HEENT Exam Head: Present: normocephalic Eye: Present: PERRL ENT: Present: mucous membranes moist - Routine Neck Exam Present: supple - Routine Respiratory Exam Present: CTA bilaterally - Routine Cardiovascular Exam Present: S1, S2 - Routine Abdominal Exam Present: soft, normoactive bowel sounds - Routine Extremities Exam Comments: LUE with soft cast good capillary refill - Routine Skin Exam Present: dry, warm - Routine Neurological Exam Present: alert - Routine Psychiatric Exam Present: cooperative - Urinary Catheter Management Indwelling Urethral Catheter Cath placed during this visit: yes, but has since been removed by the nurse Reason for continuing: Decision to DC catheter Insertion date: 01/14/18 Insertion time: 22:50 Removal date: 01/15/18 Removal time: 04:30 Assessment and Plan - Assessment (1) Atrial fibrillation with RVR Code(s): I48.91 - Unspecified atrial fibrillation Status: Acute (2) Fracture of wrist Code(s): S62.109A - Fracture of unspecified carpal bone, unspecified wrist, initial encounter for closed fracture Status: Acute Plan: Soft cast in place, pain controlled (3) HTN (hypertension) Code(s): I10 - Essential (primary) hypertension Status: Acute Plan: Monitor BP started on Cardizem per cardiology, Titrate as needed - Assessment and Plan 01/16/18- cardiology following, converted to SR, started on Cardizem, for rate and BP control. Will have Pt eval and treat, for possible SNF placement. (2) Fracture of wrist Qualifiers: Encounter type: initial encounter Fracture type: closed Laterality: left Qualified Code(s): S62.102A - Fracture of unspecified carpal bone, left wrist, initial encounter for closed fracture
[2018-01-16] MEDS: Enoxaparin Inj 100 MG/ML Syringe SQ SCH ×2 (10:18→23:59)
[2018-01-17] MEDS: dilTIAZem CD 120 MG Capsule PO SCH (09:16)
[2018-01-17] MEDS: Enoxaparin Inj 100 MG/ML Syringe SQ SCH ×2 (09:17→21:29)
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
--- NOTE | 2018-01-17 10:09 | P.PNFP ---
Subjective Interval history: Seen this am, resting comfortable daughter in room Denies any complaints No CP, No SOB Results - Labs Result diagrams: 01/15/18 06:35 01/15/18 06:35 Microbiology 01/14/18 21:00 Aerobic Blood Culture - Preliminary Blood - Peripheral No growth in 2 days Anaerobic Blood Culture - Preliminary Staphylococcus epidermidis 01/14/18 20:50 Aerobic Blood Culture - Preliminary Blood - Peripheral No growth in 2 days Anaerobic Blood Culture - Preliminary No growth in 2 days Physical Exam Vital signs: Vital Signs 01/16/18 12:00 01/16/18 16:00 01/16/18 20:00 Temperature 98.0 F 98.2 F 96.3 F L Pulse Rate 62 66 56 L Respiratory Rate 16 17 20 Blood Pressure 134/65 152/72 H 144/69 H Pulse Oximetry 96 97 97 01/17/18 00:00 01/17/18 04:00 Temperature 97.8 F 97.6 F Pulse Rate 59 L 62 Respiratory Rate 20 20 Blood Pressure 135/65 150/70 H Pulse Oximetry 97 97 Intake & Output 01/16/18 01/17/18 01/17/18 18:59 06:59 18:59 Intake Total 720 / 720 60 / 60 Balance 720 / 720 60 / 60 Intake: Oral 720 / 720 60 / 60 Other: # Voids 2 # Incontinent Voids 2 Date of Last Bowel Movement 01/14/18 # Bowel Movements 2 # Incontinent Bowel Movements 1 - Constitutional no acute distress - Routine HEENT Exam Head: Present: normocephalic Eye: Present: PERRL ENT: Present: mucous membranes moist - Routine Neck Exam Present: supple - Routine Respiratory Exam Present: CTA bilaterally - Routine Cardiovascular Exam Present: S1, S2 - Routine Abdominal Exam Present: soft, normoactive bowel sounds - Routine Extremities Exam Present: normal capillary refill Comments: Soft splint to LUE, Fingers warm + cap refill - Routine Skin Exam Present: dry, warm - Routine Neurological Exam Present: alert - Routine Psychiatric Exam Present: cooperative - Urinary Catheter Management Indwelling Urethral Catheter Cath placed during this visit: yes, but has since been removed by the nurse Reason for continuing: Decision to DC catheter Insertion date: 01/14/18 Insertion time: 22:50 Removal date: 01/15/18 Removal time: 04:30 Assessment and Plan - Assessment (1) Atrial fibrillation with RVR Code(s): I48.91 - Unspecified atrial fibrillation Status: Acute (2) Fracture of wrist Code(s): S62.109A - Fracture of unspecified carpal bone, unspecified wrist, initial encounter for closed fracture Status: Acute Plan: Soft cast in place, pain controlled (3) HTN (hypertension) Code(s): I10 - Essential (primary) hypertension Status: Acute Plan: Monitor BP started on Cardizem per cardiology, Titrate as needed - Assessment and Plan 01/16/18- cardiology following, converted to SR, started on Cardizem, for rate and BP control. Will have Pt eval and treat, for possible SNF placement. 01/17/18- Resting comfortable, denies pain, VSS afebrile. Daughter at bedside, Request rehab as she just had back surgery. She has been in [place], Will refer to for rehab placement once cleared by ID, likely over weekend. SR, Rate controlled. 3008 on chart (2) Fracture of wrist Qualifiers: Qualified Code(s): S62.102A - Fracture of unspecified carpal bone, left wrist , initial encounter for closed fracture
[2018-01-18] MEDS: dilTIAZem CD 120 MG Capsule PO SCH (08:18)
[2018-01-18 09:31] VITALS: RESP 20
[2018-01-18] MEDS: Enoxaparin Inj 100 MG/ML Syringe SQ SCH (10:24)
--- NOTE | 2018-01-18 12:59 | P.DS ---
Date of admission: 01/14/18 21:57 Primary care physician: Timmy Pink DO Attending physician on discharge: Timmy Pink Anticipated date of discharge: 01/18/18 Brief History from admission: She presented after falling at home and was treated for a fracture of the right wrist. She had 1/4 positive BC but ID agrees it is likely a contaminant and she does not need antibiotics at this time and is cleared for D/C to SNF. Patient update on day of discharge: She is awake and alert and denies pain. She remains afebrile with stable VS and is medically cleared for D/C. DS: Diagnosis - Discharge Diagnosis (1) Atrial fibrillation with RVR Status: Chronic (2) Fracture of wrist Status: Acute (3) HTN (hypertension) Status: Chronic DS: Summary Hospital Course: She has done well S/P fracture right wrist and Ortho and Cards have been following. Her AF with RVR has resolved and she has a controlled rate with Diltiazem. She is medically cleared for D/C to SNF and 3008 signed and on chart. We will F/U with her at [facility] and arrange outpatient F/U with Ortho and Cards. - Time Spent with Patient Total time spent providing and/or coordinating discharge services: Greater than 30 minutes - Quality: AMI Clinical Trial Participant: No Exam Vital signs: Vital Signs 01/17/18 16:00 01/17/18 20:00 01/17/18 23:46 Temperature 98.0 F 98.5 F 98.5 F Pulse Rate 72 76 78 Respiratory Rate 17 16 16 Blood Pressure 139/65 151/94 H 148/89 H Pulse Oximetry 96 96 96 01/18/18 08:00 01/18/18 10:11 Temperature 96.9 F L Pulse Rate 62 Respiratory Rate 20 20 Blood Pressure 138/65 Pulse Oximetry 96 Intake & Output 01/17/18 01/18/18 01/18/18 18:59 06:59 18:59 Intake Total 720 / 720 Output Total 300 / 300 350 / 350 Balance 420 / 420 -350 / -350 Weight 48.5 kg Intake: Oral 720 / 720 Output: Urine 300 / 300 350 / 350 Other: # Incontinent Voids 2 Date of Last Bowel Movement 01/17/18 01/17/18 01/17/18 # Bowel Movements 2 - Constitutional no acute distress - Routine HEENT Exam Head: Present: normocephalic Eye: Present: PERRL, normal accommodation ENT: Present: mucous membranes moist - Routine Neck Exam Present: supple, full ROM - Routine Respiratory Exam Present: CTA bilaterally - Routine Cardiovascular Exam Present: irregularly irregular - Routine Abdominal Exam Present: soft, normoactive bowel sounds - Routine Extremities Exam Comments: Right wrist in a soft cast. - Routine Skin Exam Present: intact - Routine Neurological Exam Present: alert, oriented X3 Results Procedures completed during hospitalization: Repair right wrist fx Labs on day of discharge: Preliminary micro results at discharge 01/14/18 20:50 Aerobic Blood Culture - Preliminary Blood - Peripheral No growth in 4 days Anaerobic Blood Culture - Preliminary No growth in 4 days 01/14/18 21:00 Aerobic Blood Culture - Preliminary Blood - Peripheral No growth in 4 days Anaerobic Blood Culture - Preliminary Staphylococcus epidermidis - Impressions ITS Impressions Head CT 01/14/18 20:23 CONCLUSION: No acute findings. Stable chronic white matter ischemic changes.. Wrist X-Ray 01/14/18 20:23 CONCLUSION: Distal radius and ulnar fractures as above. Discharge Plan - Discharge Disposition Patient Disposition: Discharge to SNF - Discharge Condition Condition: Good - Discharge Order Discharge Orders: Discharge Order (Routine); Ordered 01/18/18 Ordered By: Derrick Cole - Physicians Team Primary Care Provider: Timmy Pink Attending Provider: Timmy Pink Other Providers: Nathan Ellsworth MD ; Laci Ruff MD ; Selam Pelayo MD ; [facility],[place]
[2018-01-18 13:12] VITALS: BP 153/69; PULSE 63; TEMP 97.6; O2SAT 98
== END 2018-01-18 17:00 ==
LOC: PHED 19:54 → PHEDA 21:57 → PH3 01-15 00:04
PROVIDERS: ADMIT Family Medicine; ATTEND Family Medicine

== ENCOUNTER 2018-02-26 20:27 | Inpatient (IN) ==
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
--- NOTE | 2018-02-26 21:01 | CT ---
EXAM DATE: 02/26/2018 8:57 PM EST AGE/SEX: 87 years / Female INDICATIONS: Fall. Right occipital injury. CLINICAL DATA: This is the patient's initial encounter. Patient reports that signs and symptoms have been present for 1 day and indicates a pain score of 8/10. MEDICAL/SURGICAL HISTORY: Hypertension. None. RADIATION DOSE: 35.60 CTDI (mGy) COMPARISON: [facility], CT HEAD W/O CONTRAST, 01/14/2018. . TECHNIQUE: CT of the head without contrast. Using automated exposure control and adjustment of the mA and/or kV according to patient size, radiation dose was kept as low as reasonably achievable to ob tain optimal diagnostic quality images. DICOM format image data is available electronically for revi ew and comparison. FINDINGS: Cerebrum: The ventricles are normal for age with moderate atrophic changes. Stable encephalomalacia is again noted in the right frontal lobe. No evidence of midline shift, mass lesion, hemorrhage or ac javy infarction. No extraaxial fluid collections are seen. Posterior Fossa: The cerebellum and brainstem are intact. The 4th ventricle is midline. The cerebe llopontine angle is unremarkable. Extracranial: The visualized portion of the orbits is intact. Skull: The calvaria is intact. No evidence of skull fracture. CONCLUSION: 1. No acute hemorrhage or mass effect. 2. 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 . Electronically signed by: Larry Gates MD 02/26/2018 8:59 PM EST
--- NOTE | 2018-02-26 21:30 | XR ---
EXAM DATE: 02/26/2018 9:24 PM EST AGE/SEX: 87 years / Female INDICATIONS: Chest pain after fall. CLINICAL DATA: This is the patient's initial encounter. Patient reports that signs and symptoms have been present for 1 day and indicates a pain score of 1/10. MEDICAL/SURGICAL HISTORY: None. None. COMPARISON: [facility] [place], [facility] (2VWS), 02/01/2011. . FINDINGS: Stable biapical pleural calcification. No definite pneumothorax or hemothorax. Lungs are clear. Cardi ac contours are stable and satisfactory. Posttraumatic deformity of the left shoulder which is old CONCLUSION: No acute disease Electronically signed by: Julito Mohan MD 02/26/2018 9:28 PM EST
--- NOTE | 2018-02-26 21:32 | XR ---
EXAM DATE: 02/26/2018 9:26 PM EST AGE/SEX: 87 years / Female INDICATIONS: Right proximal femur pain after fall. CLINICAL DATA: This is the patient's initial encounter. Patient reports that signs and symptoms have been present for 1 day and indicates a pain score of 10/10. MEDICAL/SURGICAL HISTORY: None. None. COMPARISON: [facility], PELVIS AP ONLY, 08/29/2016. . FINDINGS: The hip is suboptimally seen, however appears grossly intact. The remainder of the femur is intact wi thout displaced fracture. There are some arthritic changes present in the hip and the knee. Prominent vascular calcifications noted. CONCLUSION: No definite femur fracture. Recommend pelvis and two-view right hip films Electronically signed by: Julito Mohan MD 02/26/2018 9:31 PM EST
--- NOTE | 2018-02-26 22:03 | XR ---
EXAM DATE: 02/26/2018 9:58 PM EST AGE/SEX: 87 years / Female INDICATIONS: Pain. Trauma. CLINICAL DATA: This is the patient's initial encounter. Patient reports that signs and symptoms have been present for 1 day and indicates a pain score of 10/10. MEDICAL/SURGICAL HISTORY: Non-responsive. . Left hip. [place] [facility] [place]/26/[place]. . FINDINGS: There is a moderately angulated basocervical right femoral neck fracture. The femoral head is intact and normally situated over the acetabulum. The adjacent pelvis is intact. CONCLUSION: Angulated basicervical right femoral neck fracture. Electronically signed by: Julito Mohan MD 02/26/2018 10:02 PM EST
[2018-02-26 22:15] LABS: Baso % (Auto) 0.6 % (0.0-2.0); Eos % (Auto) 0.7 % (0.0-4.0); Hematocrit 29.1 % (35.0-46.0); Hemoglobin 10.2 gm/dL (11.6-15.3); Lymph # (Auto) 1.5 th/mm3 (1.0-4.8); Lymph % (Auto) 34.8 % (9.0-44.0); Mean Corpuscular HGB Conc 35.1 % (32.0-36.0); Mean Corpuscular Hemoglobin 32.3 pg (27.0-34.0); Mean Corpuscular Volume 92.1 fL (80.0-100.0); Mean Platelet Volume 7.9 fL (7.0-11.0); Mono # (Auto) 0.4 th/mm3 (0.0-0.9); Mono % (Auto) 8.3 % (0.0-8.0); Neut # (Auto) 2.4 th/mm3 (1.8-7.7); Neut % (Auto) 55.6 % (16.0-70.0); Platelet Count 117 th/mm3 (150-450); Red Blood Count 3.16 mil/mm3 (4.00-5.30); White Blood Count 4.4 th/mm3 (4.0-11.0)
[2018-02-26 22:28] LABS: Activated Partial Thrombo Time 27.8 sec (23.4-31.7); INR 1.1 Ratio; Prothrombin Time 10.7 sec (9.8-11.6)
[2018-02-26 22:31] LABS: Alanine Aminotransferase 22 U/L (10-53)
[2018-02-26] MEDS ORDERED: Tetanus/Diphtheria Toxoid Adult Vaccine Inj 0.5 ML Vial IM ONE (22:32)
[2018-02-26 22:34] LABS: Alkaline Phosphatase 101 U/L (45-117); Total Protein 6.2 g/dL (6.4-8.2)
[2018-02-26 22:37] LABS: Albumin 3.2 g/dL (3.4-5.0); Anion Gap 6 meq/L (5-15); Aspartate Aminotransferase 29 U/L (15-37); Blood Urea Nitrogen 20 mg/dL (7-18); Calcium 8.2 mg/dL (8.5-10.1); Carbon Dioxide 26.7 meq/L (21.0-32.0); Chloride 102 meq/L (98-107); Glomerular Filtration Rate 71 mL/min (>89); Glucose,Random 87 mg/dL (74-106); Potassium 3.7 meq/L (3.5-5.1); Sodium 135 meq/L (136-145)
[2018-02-26] MEDS ORDERED: Sodium Chlor 0.9% Inj 500 ML IV.SIG ONE (22:38)
[2018-02-26] MEDS ORDERED: Morphine Sulfate Inj 2 MG/ML Vial IV.PUSH ONE (22:38)
[2018-02-26 23:13] LABS: Bacteria,Urine Rare /hpf; Bilirubin,Urine Negative (Negative); Clarity,Urine Hazy (Clear); Color,Urine Yellow (Yellw/Straw); Glucose,Urine (UA) Negative (Negative); Hyaline Casts,Urine 8 /lpf (0-3); Leukocyte Esterase,Urine Moderate (Negative); Mucus,Urine Few /lpf (Occasional); Nitrite,Urine Negative (Negative); Renal Epithelial Cells,Urine <1 /hpf; Specific Gravity,Urine 1.018 (1.002-1.035); Squamous Epithelial Cell,Urine 1 /hpf (0-5); Transitional Epi Cells,Urine <1 /hpf
[2018-02-27] MEDS ORDERED: Morphine Inj 4 MG/ML Vial IV.PUSH ONE (02:06)
[2018-02-27] MEDS ORDERED: ceFAZolin 2 GM Premix Inj 2 GM/50 ML PIGGYBACK IV.SIG SCH (05:00)
[2018-02-27] MEDS ORDERED: Sodium Chlor 0.9% Inj 500 ML IV.CONT ONE (09:30)
[2018-02-27] MEDS ORDERED: Chlorhexidine Gluconate 2% 1 Pack (2 Cloths) TOPICAL ONE ×2 (09:30→19:56)
[2018-02-27] MEDS ORDERED: Metoprolol Tartrate 25 MG Tablet PO ONE (09:30)
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
[2018-02-27] MEDS: Morphine Sulfate Inj 2 MG/ML Vial IM PRN (11:18)
[2018-02-27] MEDS: dilTIAZem CD 120 MG Capsule PO SCH (11:20)
--- NOTE | 2018-02-27 14:39 | ECG ---
Date Performed: 02/26/2018 Time Performed: 20:39:02 PTAGE: 87 years EKG: Sinus rhythm MARKED LEFT AXIS DEVIATION MODERATE T-WAVE ABNORMALITY, CONSIDER LATERAL ISCHEMIA ABNORMAL ECG Jurgen red to PREVIOUS TRACING sinus rhythm has replaced atrial fibrillation, nonspecific ST T changes are unchanged PREVIOUS TRACIN01/14/2018 20.27 DOCTOR: Ramone Rodriguez Interpretating Date/Time 02/27/2018 14:38:53
[2018-02-27] MEDS ORDERED: fentaNYL Citrate Inj 250 MCG/5 ML Ampul ONE (19:10)
[2018-02-27] MEDS ORDERED: Sodium Chlor 0.9% Inj 500 ML IV.SIG SCH (20:00)
[2018-02-27] MEDS ORDERED: ceFAZolin Inj 500 MG Vial ONE (20:44)
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
[2018-02-27] MEDS ORDERED: *morphine SULFATE 4 MG/ML PERIprocedure ONLY ONE (22:37)
--- NOTE | 2018-02-27 23:05 | MP ---
cc: ,Malcolm Patel DATE OF OPERATION: 02/27/2018 PREOPERATIVE DIAGNOSIS: Right basicervical femoral neck fracture. POSTOPERATIVE DIAGNOSIS: Right basicervical femoral neck fracture. OPERATION PERFORMED: Right femur open reduction and internal fixation with intramedullary implant. SURGEON: Malcolm Patel MD ANESTHESIA: General. ESTIMATED BLOOD LOSS: 100 mL. FLUIDS: Per anesthesia record. URINE OUTPUT: Per anesthesia record. SPECIMENS: None. COMPLICATIONS: None. IMPLANTS: Synthes TFNA, intermediate nail, size 12, 80 mm screw. INDICATIONS FOR PROCEDURE: Please see history and physical for complete details. In summary, Ms. Boss is an 87-year-old female who has a significant history of dementia and hypertension. She is known to our clinic, having previously presented and undergone a left distal radius open reduction and internal fixation with acute carpal tunnel with a carpal tunnel release 2 weeks ago. She presented to [facility] from her [facility] facility after having sustained another fall. She sustained acute onset right hip pain. Evaluation was significant for a basicervical femoral neck fracture. We discussed the recommendations for open reduction and internal fixation. Relevant risks, benefits, expected postoperative course of surgery were reviewed. Risks include but are not limited to, damage to surrounding blood vessels and nerves, infection, wound healing issues, malunion, nonunion, hardware failure and need for future surgery. We also discussed that hip fractures carry a 20% to 30% mortality at 1 year in the elderly population. This conversation was carried on with her daughter, Kriss, who is healthcare surrogate. A thorough opportunity was offered for her questions to be. All her questions were answered to her apparent satisfaction. She agreed to proceed with surgery as per consent. DESCRIPTION OF PROCEDURE: The patient was identified in the preoperative holding area and the operative site was marked. She was then brought back to the operating room under the care of the anesthesiology team. She was positioned supine on the OR table. All bony prominences were padded. A per protocol timeout was performed, during which the patient's identity, site, side and nature of procedure were confirmed. General anesthesia was induced without untoward effect and endotracheal intubation was performed. Prophylactic preoperative antibiotics were administered. The patient was then positioned on the fracture table. All bony prominences were padded. A reduction was then performed with longitudinal traction of the right lower extremity. AP and lateral fluoroscopic imaging confirmed excellent reduction of the basicervical femoral neck fracture. The right lower extremity was then prepped and draped in routine strict and sterile fashion using triple prep solution and occlusive draping. The case was then begun. A longitudinal incision centralized at the lateral border of the hip was made. Sharp dissection was carried through the skin and blunt dissection was continued through the subcutaneous tissues. The tip of the trochanter was identified. A guidewire was then advanced just medial to the tip of the trochanter. It was then advanced into the femoral canal. AP and lateral fluoroscopic imaging confirmed an excellent start point of the guidewire. The guidewire was then additionally advanced. An opening reamer was then placed over the guidewire. These were then removed. A size 12 mm intermediate nail was then advanced after securing it to the proximal assembly jig. AP and lateral fluoroscopic imaging confirmed excellent position of the nail within the proximal femur. The lateral cannula was then introduced. A lateral hip incision was made. The cannula was then advanced down to bone. A guidewire was then advanced through this cannula into the femoral head. A 125 mm angled construct was selected. AP and lateral fluoroscopic imaging confirmed an excellent center-center position of the wire. A derotational wire was then placed anteriorly. The guidewire measured a size 80 mm hip screw. The hip screw was then opened and advanced over the guidewire. The nail was then locked and placed into dynamic mode. The hip screw was then placed in compression mode after releasing the traction. Repeat AP and lateral fluoroscopic imaging confirmed excellent reduction of the basicervical femoral neck fracture. The central guidewire was removed. Attention was turned to the distal interlocking screw. The guided cannula was placed over the lateral border of the femur. This was then drilled and a 32 mm interlocking screw was then placed. AP and lateral fluoroscopic imaging was obtained. This confirmed excellent reduction of the basicervical femoral neck fracture. Hardware placement was uncomplicated. Tip to apex distance was appropriate. All wounds were thoroughly irrigated with normal saline solution. Attention was turned to wound closure. The wounds were closed in layers. A 2-0 Vicryl was used for the deep layer and jackie were used for the skin. A dry sterile dressing consisting of Xeroform, 4 x 4 gauze and Medipore tape was then applied. This completed the case. At the conclusion of the case, all sponge and needle counts were correct x 2. I was present for the entire duration of the case. DISPOSITION: The patient was reversed from anesthesia and transferred to the PACU in stable condition. POSTOPERATIVE RECOMMENDATIONS: 1. Weightbearing as tolerated to the right lower extremity. 2. DVT recommended with Lovenox x 21 days. 3. Multimodal pain control. 4. PT, OT consultation for the above weightbearing precautions. 5. Follow up with Dr. Patel in 2 weeks for a wound check. Malcolm Patel MD, CM/sabrina , 10:24 PM , 10:34 PM
--- NOTE | 2018-02-28 00:13 | XR ---
EXAM DATE: 02/27/2018 11:51 PM EST AGE/SEX: 87 years / Female INDICATIONS: ORIF of right hip done in the operating room. CLINICAL DATA: This is the patient's initial encounter. Patient reports that signs and symptoms have been present for 1 day and indicates a pain score of Nonresponsive. MEDICAL/SURGICAL HISTORY: . . Left hip. COMPARISON: [facility], HIP RIGHT W AP PELVIS 2V, 02/26/2018. . FINDINGS: 3 spot fluoroscopic images obtained in the operating room during a procedure demonstrates placement o f an antegrade intramedullary rommel within the proximal femur with a proximal femoral head and neck scr ew. There is improved anatomic alignment. CONCLUSION: Improved alignment following right proximal femur ORIF. Electronically signed by: Julito Dailey MD 02/28/2018 12:12 AM EST
[2018-02-28] MEDS ORDERED: Sodium Chloride 0.9% 2 ML Flush PRN IV.FLUSH (00:17)
[2018-02-28] MEDS: Morphine Sulfate Inj 2 MG/ML Vial IM PRN (02:53)
--- NOTE | 2018-02-28 04:20 | XR ---
EXAM DATE: 02/28/2018 4:08 AM EST AGE/SEX: 87 years / Female INDICATIONS: Pain. CLINICAL DATA: This is the patient's initial encounter. Patient reports that signs and symptoms have been present for 1 day and indicates a pain score of Nonresponsive. MEDICAL/SURGICAL HISTORY: None. . Bilateral hips. COMPARISON: No prior exams available for comparison. FINDINGS: 3 portable views of the right ankle demonstrate no fracture or dislocation. The bones are under finished cloth examiner alized. Ankle mortise is intact. No soft tissue abnormality or radiopaque foreign body is identified. CONCLUSION: Under mineralized bones. No acute right ankle abnormality is identified. Electronically signed by: Julito Dailey MD 02/28/2018 4:19 AM EST
--- NOTE | 2018-02-28 04:23 | XR ---
EXAM DATE: 02/28/2018 4:09 AM EST AGE/SEX: 87 years / Female INDICATIONS: Pain. CLINICAL DATA: This is the patient's initial encounter. Patient reports that signs and symptoms have been present for 1 day and indicates a pain score of Nonresponsive. MEDICAL/SURGICAL HISTORY: None. . Bilateral hips. COMPARISON: No prior exams available for comparison. FINDINGS: 4 portable views of the left ankle demonstrate no acute fracture or dislocation. The bones are under mineralized. Ankle mortise is intact. There is abnormal angulation of the distal tibia and fibula wit h bony callus characteristic of prior healed fractures. There is a sclerotic area in the distal tibia measuring approximately 1.8 cm. No soft tissue abnormality or radiopaque foreign body is identified. There are osteophytes at the tibiotalar joint. Please note that the hindfoot is only partially visua lized on the lateral projection. CONCLUSION: 1. Changes related to old healed fractures of the distal tibia and fibula, as above. 18 mm sclerotic area in the distal left tibia is nonspecific but does not appear to represent an aggressive process. 2. Under mineralized bones. No definite acute fracture is seen. Please note that the hindfoot is onl y partially visualized. Consider standard views of the left ankle when patient condition permits. Electronically signed by: Julito Dailey MD 02/28/2018 4:22 AM EST
[2018-02-28] MEDS: ceFAZolin 2 GM Premix Inj 2 GM/50 ML PIGGYBACK IV.SIG SCH ×3 (05:57→21:01)
[2018-02-28] MEDS: Mirtazapine 15 MG Tablet PO SCH (08:19)
[2018-02-28] MEDS: dilTIAZem CD 120 MG Capsule PO SCH (08:19)
--- NOTE | 2018-02-28 08:42 | P.PNFP ---
Subjective Interval history: In bed no apparent distress She is painful with movement Dsg to R Hip C/D/I Results - Labs Result diagrams: 02/26/18 20:41 02/26/18 20:41 - Imaging Impressions Hip X-Ray 02/27/18 00:00 CONCLUSION: Improved alignment following right proximal femur ORIF. Ankle X-Ray 02/28/18 00:00 CONCLUSION: 1. Changes related to old healed fractures of the distal tibia and fibula, as above. 18 mm sclerotic area in the distal left tibia is nonspecific but does not appear to represent an aggressive process. 2. Under mineralized bones. No definite acute fracture is seen. Please note that the hindfoot is only partially visualized. Consider standard views of the left ankle when patient condition permits. Ankle X-Ray 02/28/18 00:00 CONCLUSION: Under mineralized bones. No acute right ankle abnormality is identified. Physical Exam Vital signs: Vital Signs 02/27/18 11:36 02/27/18 12:00 02/27/18 14:40 Temperature 98.5 F Pulse Rate 74 Respiratory Rate 18 18 16 Blood Pressure 166/75 H Pulse Oximetry 96 02/27/18 16:00 02/27/18 19:37 02/27/18 20:00 Temperature 99.6 F 98.0 F 98.9 F Pulse Rate 76 78 80 Respiratory Rate 18 15 17 Blood Pressure 191/84 H 193/86 H 198/91 H Pulse Oximetry 96 95 95 02/27/18 22:25 02/27/18 22:30 02/27/18 22:45 Temperature 97.3 F L Pulse Rate 90 87 81 Respiratory Rate 18 18 20 Blood Pressure 173/74 H 196/81 H 155/70 H Pulse Oximetry 93 L 95 99 02/27/18 23:00 02/27/18 23:15 02/27/18 23:30 Temperature 97.7 F Pulse Rate 87 76 78 Respiratory Rate 14 14 14 Blood Pressure 139/63 147/67 H 135/59 L Pulse Oximetry 100 100 99 02/28/18 00:00 02/28/18 00:40 02/28/18 04:00 Temperature 98.2 F Pulse Rate 80 72 72 Respiratory Rate 17 Blood Pressure 132/63 Pulse Oximetry 94 L 02/28/18 04:10 Temperature 98.4 F Pulse Rate 71 Respiratory Rate 17 Blood Pressure 130/60 Pulse Oximetry 98 Intake & Output 02/27/18 02/28/18 02/28/18 18:59 06:59 18:59 Intake Total 1270 / 1270 Output Total 700 / 700 750 / 750 Balance -700 / -700 520 / 520 Weight 44.9 kg Intake: IV 150 / 150 Ancef 2 GM Premix Inj 2 gm In 50 / 50 50 ml @ 100 mls/hr IV.SIG Q8H SANTOS Rx#:[id number] Rocephin Inj 1,000 MG In NS Inj 100 / 100 100 ML @ 200 mls/hr IV.SIG Q24H SANTOS Rx#:[id number] Oral 120 / 120 Anesthesia Amount 1000 / 1000 Output: Urine 700 / 700 500 / 500 Estimated Blood Loss 100 / 100 Urine Amount (Catheter) 150 / 150 Indwelling Urethral Catheter 150 / 150 Other: # Bowel Movements 0 0 - Constitutional no acute distress - Routine HEENT Exam Eye: Present: PERRL ENT: Present: mucous membranes moist - Routine Respiratory Exam Present: CTA bilaterally - Routine Cardiovascular Exam Present: S1, S2 - Routine Abdominal Exam Present: soft, normoactive bowel sounds - Routine Extremities Exam Present: pulses intact, normal capillary refill Comments: cast to L UE, good cap refill - Routine Skin Exam Present: dry, warm Comments: Dsg to R hip C/D/I - Routine Neurological Exam Present: alert - Routine Psychiatric Exam Present: cooperative - Urinary Catheter Management Indwelling Urethral Catheter Cath placed during this visit: yes Reason for continuing: Hourly intake/output Insertion date: 02/27/18 Insertion time: 00:07 Assessment and Plan - Assessment (1) Fracture, hip Code(s): S72.009A - Fracture of unspecified part of neck of unspecified femur, initial encounter for closed fracture Status: Acute Plan: ORIF last night pain management Lovenox x 21 days (2) Atrial fibrillation with RVR Code(s): I48.91 - Unspecified atrial fibrillation Status: Chronic Plan: cont home Meds, telemetry monitoring (3) HTN (hypertension) Code(s): I10 - Essential (primary) hypertension Status: Chronic Plan: Monitor cont home medications - Assessment and Plan 02/28/18- S/P ORIF last night, dsg to R hip intact, pain controlled, does have Hydrocodone and MS, Will DC iv tomorrow. Sepulveda in place will dc in am. She is sleepy but follows commands. Monitor cbc, Dc back to snf when cleared by Ortho
[2018-02-28 11:26] LABS: Hematocrit 26.8 % (35.0-46.0); Hemoglobin 9.2 gm/dL (11.6-15.3); Mean Corpuscular HGB Conc 34.4 % (32.0-36.0); Mean Corpuscular Hemoglobin 32.3 pg (27.0-34.0); Mean Corpuscular Volume 93.9 fL (80.0-100.0); Mean Platelet Volume 8.6 fL (7.0-11.0); Platelet Count 110 th/mm3 (150-450); Red Blood Count 2.86 mil/mm3 (4.00-5.30); Red Cell Distribution Width 15.3 % (11.6-17.2); White Blood Count 7.6 th/mm3 (4.0-11.0)
[2018-02-28] MEDS: Sodium Chloride 0.9% 2 ML Flush BID IV.FLUSH SCH ×2 (12:23→23:51)
--- NOTE | 2018-02-28 19:37 | P.PNOP ---
Subjective Interval history: No acute overnight events. Pain well controlled. Resting comfortably in bed. Physical Exam Vital signs: Vital Signs 02/27/18 19:37 02/27/18 20:00 02/27/18 22:25 Temperature 98.0 F 98.9 F 97.3 F L Pulse Rate 78 80 90 Respiratory Rate 15 17 18 Blood Pressure 193/86 H 198/91 H 173/74 H Pulse Oximetry 95 95 93 L 02/27/18 22:30 02/27/18 22:45 02/27/18 23:00 Temperature Pulse Rate 87 81 87 Respiratory Rate 18 20 14 Blood Pressure 196/81 H 155/70 H 139/63 Pulse Oximetry 95 99 100 02/27/18 23:15 02/27/18 23:30 02/28/18 00:00 Temperature 97.7 F 98.2 F Pulse Rate 76 78 80 Respiratory Rate 14 14 17 Blood Pressure 147/67 H 135/59 L 132/63 Pulse Oximetry 100 99 94 L 02/28/18 00:40 02/28/18 04:00 02/28/18 04:10 Temperature 98.4 F Pulse Rate 72 72 71 Respiratory Rate 17 Blood Pressure 130/60 Pulse Oximetry 98 02/28/18 08:00 02/28/18 12:00 02/28/18 16:00 Temperature 98.0 F 98.1 F 97.3 F L Pulse Rate 78 72 66 Respiratory Rate 20 18 16 Blood Pressure 118/58 L 133/60 135/59 L Pulse Oximetry 98 95 98 Intake & Output 02/28/18 02/28/18 03/01/18 06:59 18:59 06:59 Intake Total 1270 / 1270 50 / 50 Output Total 750 / 750 350 / 350 Balance 520 / 520 50 / 50 -350 / -350 Weight 44.9 kg Intake: IV 150 / 150 50 / 50 Ancef 2 GM Premix Inj 2 gm In 50 / 50 50 / 50 50 ml @ 100 mls/hr IV.SIG Q8H SANTOS Rx#:[id number] Rocephin Inj 1,000 MG In NS Inj 100 / 100 100 ML @ 200 mls/hr IV.SIG Q24H SANTOS Rx#:[id number] Oral 120 / 120 Anesthesia Amount 1000 / 1000 Output: Urine 500 / 500 350 / 350 Estimated Blood Loss 100 / 100 Urine Amount (Catheter) 150 / 150 Indwelling Urethral Catheter 150 / 150 Other: Date of Last Bowel Movement 02/26/18 # Bowel Movements 0 - Constitutional no acute distress - Routine Extremities Exam Comments: Focused evaluation of the right lower extremity demonstrates lateral hip dressings, clean dry and intact. Sensation is intact to the dorsum and volar surface of the right foot. There is positive EHL/FHL. 2+ DP and PT pulses. - Routine Neurological Exam Present: alert Altered mental status. At cognitive baseline. Known history of dementia. - Urinary Catheter Management Indwelling Urethral Catheter Cath placed during this visit: yes Reason for continuing: Hourly intake/output Insertion date: 02/27/18 Insertion time: 00:07 Results - Labs CBC & Chem 7: 02/28/18 10:20 02/26/18 20:41 Laboratory Results - last 24 hr 02/28/18 10:20 WBC 7.6 RBC 2.86 L Hgb 9.2 L Hct 26.8 L MCV 93.9 MCH 32.3 MCHC 34.4 RDW 15.3 Plt Count 110 L MPV 8.6 - Imaging Impressions Hip X-Ray 02/27/18 00:00 CONCLUSION: Improved alignment following right proximal femur ORIF. Ankle X-Ray 02/28/18 00:00 CONCLUSION: 1. Changes related to old healed fractures of the distal tibia and fibula, as above. 18 mm sclerotic area in the distal left tibia is nonspecific but does not appear to represent an aggressive process. 2. Under mineralized bones. No definite acute fracture is seen. Please note that the hindfoot is only partially visualized. Consider standard views of the left ankle when patient condition permits. Ankle X-Ray 02/28/18 00:00 CONCLUSION: Under mineralized bones. No acute right ankle abnormality is identified. Assessment and Plan - Assessment and Plan 87 yo F with dementia, hypertension presents with basicervical femoral neck fracture. 2 weeks s/p left distal radius ORIF, CTR. Postop day 1 status post right hip open reduction internal fixation with intramedullary implant. Doing well 1. Weightbearing as tolerated to the right lower extremity. 2. DVT prophylaxis, recommended Lovenox x 21 days. 3. Multimodal pain control. 4. PT, OT consultation for the above weightbearing precautions. 5. Follow up with Dr. Patel in 2 weeks for a wound check. Dispo: Plan for residential facility placement to [place]. May discharge on Saturday.
[2018-03-01 06:25] LABS: Hematocrit 22.9 % (35.0-46.0); Mean Corpuscular HGB Conc 35.2 % (32.0-36.0); Mean Corpuscular Hemoglobin 32.9 pg (27.0-34.0); Mean Corpuscular Volume 93.5 fL (80.0-100.0); Mean Platelet Volume 7.8 fL (7.0-11.0); Platelet Count 102 th/mm3 (150-450); Red Blood Count 2.45 mil/mm3 (4.00-5.30); Red Cell Distribution Width 15.3 % (11.6-17.2); White Blood Count 6.9 th/mm3 (4.0-11.0)
--- NOTE | 2018-03-01 07:18 | P.PNOP ---
Subjective Interval history: no voiced complaints this morning Physical Exam Vital signs: Vital Signs 02/28/18 08:00 02/28/18 12:00 02/28/18 16:00 Temperature 98.0 F 98.1 F 97.3 F L Pulse Rate 78 72 66 Respiratory Rate 20 18 16 Blood Pressure 118/58 L 133/60 135/59 L Pulse Oximetry 98 95 98 02/28/18 20:05 02/28/18 20:25 02/28/18 21:35 Temperature 98.6 F Pulse Rate 80 75 Respiratory Rate 17 18 Blood Pressure 165/70 H Pulse Oximetry 100 02/28/18 23:58 03/01/18 00:20 03/01/18 03:45 Temperature 97.8 F 97.7 F Pulse Rate 72 69 70 Respiratory Rate 17 17 Blood Pressure 115/56 L 161/68 H Pulse Oximetry 96 99 03/01/18 03:52 Temperature Pulse Rate 71 Respiratory Rate Blood Pressure Pulse Oximetry Intake & Output 02/28/18 03/01/18 03/01/18 18:59 06:59 18:59 Intake Total 50 / 50 150 / 150 Output Total 550 / 550 Balance 50 / 50 -400 / -400 Weight 44.6 kg Intake: IV 50 / 50 150 / 150 Ancef 2 GM Premix Inj 2 gm In 50 / 50 50 / 50 50 ml @ 100 mls/hr IV.SIG Q8H [facility]ANTOS Rx#:[id number] Rocephin Inj 1,000 MG In NS Inj 100 / 100 100 ML @ 200 mls/hr IV.SIG Q24H SANTOS Rx#:[id number] Output: Urine 350 / 350 Urine Amount (Catheter) 200 / 200 Indwelling Urethral Catheter 200 / 200 Other: Date of Last Bowel Movement 02/26/18 02/26/18 Narrative: also seen by Dr. Evgeny Edmond right hip dressing dry and intact no calf tenderness - Urinary Catheter Management Indwelling Urethral Catheter Cath placed during this visit: yes, but has since been removed by the nurse Reason for continuing: Continue criteria not met Insertion date: 02/27/18 Insertion time: 00:07 Removal date: 03/01/18 Removal time: 02:30 Results - Labs CBC & Chem 7: 03/01/18 06:06 02/26/18 20:41 Laboratory Results - last 24 hr 02/28/18 03/01/18 10:20 06:06 WBC 7.6 6.9 RBC 2.86 L 2.45 L Hgb 9.2 L 8.0 L Hct 26.8 L 22.9 L MCV 93.9 93.5 MCH 32.3 32.9 MCHC 34.4 35.2 RDW 15.3 15.3 Plt Count 110 L 102 L MPV 8.6 7.8 Assessment and Plan - Assessment and Plan 87 yo F with dementia, hypertension presents with basicervical femoral neck fracture. 2 weeks s/p left distal radius ORIF, CTR. Postop day #2 status post right hip open reduction internal fixation with intramedullary implant. 1. Weightbearing as tolerated to the right lower extremity. 2. DVT prophylaxis, recommended Lovenox x 21 days. 3. Multimodal pain control. 4. PT, OT consultation for the above weightbearing precautions. 5. Follow up with Dr. Patel in 2 weeks for a wound check. Dispo: Plan for snf facility or inpatient rehab for discharge today , orthopedically stable for discharge today, medically stable.
[2018-03-01] MEDS: dilTIAZem CD 120 MG Capsule PO SCH (08:41)
[2018-03-01] MEDS: Mirtazapine 15 MG Tablet PO SCH (08:41)
[2018-03-01] MEDS: Sodium Chloride 0.9% 2 ML Flush BID IV.FLUSH SCH (08:41)
--- NOTE | 2018-03-01 11:06 | P.DS ---
Date of admission: 02/26/18 23:37 Primary care physician: Timmy Pink DO Attending physician on discharge: Timmy Pink Anticipated date of discharge: 03/01/18 Brief History from admission: 87-year-old female with PMH of dementia, HTN presents the ED from [facility] after fall. Ortho has been consulted and ORIF of hip fracture performed. She is cleared by Ortho for D/C to SNF today. Patient update on day of discharge: Patient has pain controlled and is surgically and medically cleared for D/C back to [facility]. DS: Diagnosis - Discharge Diagnosis (1) Fracture, hip Status: Acute Diagnosis: Principal (2) Fracture of wrist Status: Chronic Diagnosis: Secondary (3) Atrial fibrillation with RVR Status: Chronic (4) HTN (hypertension) Status: Chronic DS: Medications - Discharge Medications Prescriptions: hydrocodone-acetaminophen [[place]] 1 tab PO Q4-6H PRN #42 tab PRN Reason: Acute Pain Exception DS: Summary Hospital Course: Presented following a fall and was found to have hip fracture. She was seen and tecken to OR and ORIF of the hip was performed. She tolerated the procedure and has been cleared for D/C back to SNF today. - Time Spent with Patient Total time spent providing and/or coordinating discharge services: Less than 30 minutes - Quality: AMI Clinical Trial Participant: No - Quality: VTE Deep Vein Thrombosis/Pulmonary Embolism Present on Admission: No Exam Vital signs: Vital Signs 02/28/18 12:00 02/28/18 16:00 02/28/18 20:05 Temperature 98.1 F 97.3 F L 98.6 F Pulse Rate 72 66 80 Respiratory Rate 18 16 17 Blood Pressure 133/60 135/59 L 165/70 H Pulse Oximetry 95 98 100 02/28/18 20:25 02/28/18 21:35 02/28/18 23:58 Temperature Pulse Rate 75 72 Respiratory Rate 18 Blood Pressure Pulse Oximetry 03/01/18 00:20 03/01/18 03:45 03/01/18 03:52 Temperature 97.8 F 97.7 F Pulse Rate 69 70 71 Respiratory Rate 17 17 Blood Pressure 115/56 L 161/68 H Pulse Oximetry 96 99 03/01/18 08:00 Temperature 99.5 F Pulse Rate 87 Respiratory Rate 12 Blood Pressure 193/82 H Pulse Oximetry 96 Intake & Output 02/28/18 03/01/18 03/01/18 18:59 06:59 18:59 Intake Total 50 / 50 150 / 150 Output Total 550 / 550 Balance 50 / 50 -400 / -400 Weight 44.6 kg Intake: IV 50 / 50 150 / 150 Ancef 2 GM Premix Inj 2 gm In 50 / 50 50 / 50 50 ml @ 100 mls/hr IV.SIG Q8H SANTOS Rx#:[id number] Rocephin Inj 1,000 MG In NS Inj 100 / 100 100 ML @ 200 mls/hr IV.SIG Q24H SANTOS Rx#:[id number] Output: Urine 350 / 350 Urine Amount (Catheter) 200 / 200 Indwelling Urethral Catheter 200 / 200 Other: # Incontinent Voids 1 Date of Last Bowel Movement 02/26/18 02/26/18 - Constitutional no acute distress - Routine HEENT Exam Head: Present: normocephalic Eye: Present: normal accommodation ENT: Present: mucous membranes moist - Routine Neck Exam Present: supple, full ROM - Routine Chest/Breast/Axilla Exam Chest wall: Absent: tenderness - Routine Respiratory Exam Present: CTA bilaterally - Routine Cardiovascular Exam Present: RRR, S1, S2, murmur - Routine Abdominal Exam Present: soft, firm - Routine Extremities Exam Absent: full ROM Comments: dressing intact over hip - Routine Skin Exam Present: intact - Routine Neurological Exam Present: alert Results Procedures completed during hospitalization: ORIF hip fracture Labs on day of discharge: Labs from last 24 hours 03/01/18 02/28/18 06:06 10:20 WBC 6.9 7.6 RBC 2.45 L 2.86 L Hgb 8.0 L 9.2 L Hct 22.9 L 26.8 L MCV 93.5 93.9 MCH 32.9 32.3 MCHC 35.2 34.4 RDW 15.3 15.3 Plt Count 102 L 110 L MPV 7.8 8.6 - Impressions ITS Impressions Chest X-Ray 02/26/18 20:36 CONCLUSION: No acute disease Head CT 02/26/18 20:36 CONCLUSION: 1. No acute hemorrhage or mass effect. 2. 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 . Femur X-Ray 02/26/18 20:37 CONCLUSION: No definite femur fracture. Recommend pelvis and two-view right hip films Hip X-Ray 02/27/18 00:00 CONCLUSION: Improved alignment following right proximal femur ORIF. Ankle X-Ray 02/28/18 00:00 CONCLUSION: 1. Changes related to old healed fractures of the distal tibia and fibula, as above. 18 mm sclerotic area in the distal left tibia is nonspecific but does not appear to represent an aggressive process. 2. Under mineralized bones. No definite acute fracture is seen. Please note that the hindfoot is only partially visualized. Consider standard views of the left ankle when patient condition permits. Discharge Plan - Discharge Disposition Patient Disposition: 03 Discharge to SNF - Discharge Order Discharge Orders: Discharge Order (Routine); Ordered 03/01/18 Ordered By: Derrick Cole - Physicians Team Primary Care Provider: Timmy Pink Attending Provider: Timmy Pink Other Providers: Lino Patel MD ; [facility]
[2018-03-02] MEDS: Sodium Chloride 0.9% 2 ML Flush BID IV.FLUSH SCH ×4 (00:39→20:01)
[2018-03-02 08:11] LABS: Hematocrit 21.1 % (35.0-46.0); Hemoglobin 7.4 gm/dL (11.6-15.3); Mean Corpuscular HGB Conc 34.9 % (32.0-36.0); Mean Corpuscular Hemoglobin 32.8 pg (27.0-34.0); Mean Corpuscular Volume 93.9 fL (80.0-100.0); Mean Platelet Volume 8.4 fL (7.0-11.0); Platelet Count 106 th/mm3 (150-450); Red Blood Count 2.25 mil/mm3 (4.00-5.30); Red Cell Distribution Width 15.2 % (11.6-17.2)
--- NOTE | 2018-03-02 08:18 | P.PNOP ---
Subjective Interval history: patient irritable but mostly complaining that she needs assistance eating her breakfast no other voiced complaints this morning Physical Exam Vital signs: Vital Signs 03/01/18 12:00 03/01/18 12:15 03/01/18 16:00 Temperature 100.0 F H 99.9 F H Pulse Rate 87 85 Respiratory Rate 12 13 Blood Pressure 190/79 H 138/64 Pulse Oximetry 95 96 95 03/01/18 20:00 03/01/18 21:44 03/02/18 00:00 Temperature 98.9 F Pulse Rate 87 78 Respiratory Rate 20 Blood Pressure 155/70 H Pulse Oximetry 96 99 03/02/18 04:00 Temperature 98.0 F Pulse Rate 121 H Respiratory Rate 20 Blood Pressure 131/62 Pulse Oximetry 94 L Intake & Output 03/01/18 03/02/18 03/02/18 18:59 06:59 18:59 Intake Total 240 / 240 100 / 100 Balance 240 / 240 100 / 100 Intake: IV 100 / 100 Rocephin Inj 1,000 MG In NS Inj 100 / 100 100 ML @ 200 mls/hr IV.SIG Q24H SANTOS Rx#:[id number] Oral 240 / 240 Other: # Voids 2 # Incontinent Voids 1 Date of Last Bowel Movement 03/28/18 Narrative: also seen by Dr. Evgeny Edmond and Sonia, charge nurse patient sitting up eating breakfast right hip dressing dry and intact no calf tenderness - Urinary Catheter Management Indwelling Urethral Catheter Cath placed during this visit: yes, but has since been removed by the nurse Reason for continuing: Continue criteria not met Insertion date: 02/27/18 Insertion time: 00:07 Removal date: 03/01/18 Removal time: 02:30 Results - Labs CBC & Chem 7: 03/02/18 07:22 02/26/18 20:41 Laboratory Results - last 24 hr 03/02/18 07:22 WBC 6.0 RBC 2.25 L Hgb 7.4 L Hct 21.1 L MCV 93.9 MCH 32.8 MCHC 34.9 RDW 15.2 Plt Count 106 L MPV 8.4 - Procedures ORIF hip fracture Assessment and Plan - Assessment and Plan 87 yo F with dementia, hypertension presents with basicervical femoral neck fracture. 2 weeks s/p left distal radius ORIF, CTR. Postop day #3 status post right hip open reduction internal fixation with intramedullary implant. 1. Weightbearing as tolerated to the right lower extremity. 2. DVT prophylaxis, recommended Lovenox x 21 days. 3. Multimodal pain control. 4. PT, OT consultation for the above weightbearing precautions. 5. Follow up with Dr. Patel in 2 weeks for a wound check. Dispo: Plan for discharge to [facility] today, orthopedically stable.
[2018-03-02] MEDS: dilTIAZem CD 120 MG Capsule PO SCH (08:29)
[2018-03-02] MEDS: MIRTAZAPINE 30 MG PO SCH (08:30)
[2018-03-03] MEDS: MIRTAZAPINE 30 MG PO SCH (09:05)
[2018-03-03] MEDS: dilTIAZem CD 120 MG Capsule PO SCH (09:05)
[2018-03-03] MEDS: Sodium Chloride 0.9% 2 ML Flush BID IV.FLUSH SCH ×2 (09:05→22:27)
--- NOTE | 2018-03-03 12:36 | P.PNFP ---
Subjective Interval history: Delayed entry, Seen this am Pain to Right hip, LUE cast with mild discomfort She denies Cp, palpations, or SOB. Therapy in room Results - Labs Result diagrams: 03/02/18 07:22 02/26/18 20:41 Physical Exam Vital signs: Vital Signs 03/02/18 16:00 03/02/18 18:23 03/02/18 19:53 Temperature 98.0 F Pulse Rate 95 H Respiratory Rate 14 16 18 Blood Pressure 102/58 L Pulse Oximetry 94 L 03/02/18 20:23 03/02/18 20:26 03/03/18 00:00 Temperature 97.2 F L 97.1 F L Pulse Rate 91 H 65 Respiratory Rate 16 18 18 Blood Pressure 115/63 Pulse Oximetry 96 95 03/03/18 01:36 03/03/18 04:00 03/03/18 09:00 Temperature 97.5 F L 97.9 F Pulse Rate 71 84 Respiratory Rate 16 19 17 Blood Pressure 119/69 179/71 H Pulse Oximetry 95 92 L 03/03/18 11:48 Temperature Pulse Rate Respiratory Rate 18 Blood Pressure Pulse Oximetry Intake & Output 03/02/18 03/03/18 03/03/18 18:59 06:59 18:59 Intake Total 480 / 480 200 / 200 Balance 480 / 480 200 / 200 Intake: IV 100 / 100 Rocephin Inj 1,000 MG In NS Inj 100 / 100 100 ML @ 200 mls/hr IV.SIG Q24H SANTOS Rx#:[id number] Oral 480 / 480 100 / 100 Other: # Voids 3 # Urine Diapers 1 Date of Last Bowel Movement 03/02/18 03/02/18 - Constitutional no acute distress - Routine HEENT Exam Eye: Present: PERRL ENT: Present: mucous membranes moist - Routine Neck Exam Present: supple - Routine Respiratory Exam Present: CTA bilaterally - Routine Cardiovascular Exam Present: S1, S2 - Routine Abdominal Exam Present: soft, normoactive bowel sounds - Routine Extremities Exam Present: normal capillary refill - Routine Skin Exam Present: dry, warm - Routine Neurological Exam Present: alert - Routine Psychiatric Exam Present: cooperative - Urinary Catheter Management Indwelling Urethral Catheter Cath placed during this visit: yes, but has since been removed by the nurse Reason for continuing: Continue criteria not met Insertion date: 02/27/18 Insertion time: 00:07 Removal date: 03/01/18 Removal time: 02:30 Assessment and Plan - Assessment (1) Fracture, hip Code(s): S72.009A - Fracture of unspecified part of neck of unspecified femur, initial encounter for closed fracture Status: Acute Plan: ORIF 02/27/18 pain management Lovenox x 21 days (2) Fracture of wrist Code(s): S62.109A - Fracture of unspecified carpal bone, unspecified wrist, initial encounter for closed fracture Status: Chronic (3) Atrial fibrillation with RVR Code(s): I48.91 - Unspecified atrial fibrillation Status: Chronic Plan: cont home Meds, telemetry monitoring (4) HTN (hypertension) Code(s): I10 - Essential (primary) hypertension Status: Chronic Plan: Monitor cont home medications - Assessment and Plan 02/28/18- S/P ORIF last night, dsg to R hip intact, pain controlled, does have Hydrocodone and MS, Will DC iv tomorrow. Sepulveda in place will dc in am. She is sleepy but follows commands. Monitor cbc, Dc back to snf when cleared by Ortho. 03/03/18- Seen this am, she does have some discomfort to Right hip. Therapy in room. She was DC yesterday to [facility], however daughter Kriss wanted to discuss Hospice. Consult places. DC when arrangements made either with Hospices services or to [facility]. Progress Note: Quality - AMI Clinical Trial Participant: No (2) Fracture of wrist Qualifiers: Encounter type: initial encounter Fracture type: closed Laterality: left Qualified Code(s): S62.102A - Fracture of unspecified carpal bone, left wrist, initial encounter for closed fracture
[2018-03-04] MEDS: dilTIAZem CD 120 MG Capsule PO SCH (08:09)
[2018-03-04] MEDS: MIRTAZAPINE 30 MG PO SCH (08:09)
[2018-03-04] MEDS: Sodium Chloride 0.9% 2 ML Flush BID IV.FLUSH SCH (08:10)
--- NOTE | 2018-03-04 09:35 | P.DS ---
Date of admission: 02/26/18 23:37 Primary care physician: Timmy Pink DO Anticipated date of discharge: 03/01/18 Brief History from admission: 87-year-old female with PMH of dementia, HTN presents the ED from [facility] after fall. Recently treated for displaced distal radius fracture with acute carpal tunnel syndrome 2 weeks prior. Ortho was consulted and ORIF of hip fracture performed. She is s/p f She is cleared by Ortho for D/C to SNF. . DS: Diagnosis - Discharge Diagnosis (1) Fracture, hip Status: Acute (2) Fracture of wrist Status: Chronic (3) Atrial fibrillation with RVR Status: Chronic (4) HTN (hypertension) Status: Chronic DS: Medications - Discharge Medications Prescriptions: hydrocodone-acetaminophen [Edison] 1 tab PO Q4-6H PRN #42 tab PRN Reason: Acute Pain Exception DS: Summary Hospital Course: Presented following a fall and was found to have hip fracture. She was seen and taken to OR and ORIF of the R hip was performed on evening of 02/27/18. She tolerated the procedure and has been cleared for D/C back to SNF, Family contemplating Hospice, [facility] was consulted and spoke with family on 03/03/18. Family decided to not return to [facility], but would like [facility] in attempt to rehab patient, defer Hospice at this time. Patient accepted at [facility] and will be transferred there today. - Time Spent with Patient Total time spent providing and/or coordinating discharge services: 25 Less than 30 minutes - Quality: AMI Clinical Trial Participant: No - Quality: Stroke Symptom Onset Unknown: No - Quality: VTE Is this test being ordered to rule out VTE?: No Deep Vein Thrombosis/Pulmonary Embolism Present on Admission: No Exam Vital signs: Vital Signs 03/03/18 11:46 03/03/18 11:48 03/03/18 13:15 Temperature 98.2 F Pulse Rate 64 Respiratory Rate 17 18 16 Blood Pressure 156/71 H Pulse Oximetry 96 03/03/18 16:00 03/03/18 19:50 03/03/18 23:35 Temperature 97.9 F 98.2 F 98.9 F Pulse Rate 69 80 94 H Respiratory Rate 18 17 17 Blood Pressure 122/58 L 168/76 H 143/65 H Pulse Oximetry 94 L 96 98 03/04/18 04:20 03/04/18 07:00 Temperature 97.5 F L 97.4 F L Pulse Rate 62 70 Respiratory Rate 17 16 Blood Pressure 127/58 L 187/81 H Pulse Oximetry 96 100 Intake & Output 03/03/18 03/04/18 03/04/18 18:59 06:59 18:59 Intake Total 200 / 200 Output Total 100 / 100 Balance -100 / -100 200 / 200 Weight 45.3 kg Intake: IV 100 / 100 Rocephin Inj 1,000 MG In NS Inj 100 / 100 100 ML @ 200 mls/hr IV.SIG Q24H SANTOS Rx#:[id number] Oral 100 / 100 Output: Estimated Blood Loss 100 / 100 Other: # Voids 1 Date of Last Bowel Movement 03/02/18 03/28/18 # Bowel Movements 0 - Constitutional no acute distress - Routine HEENT Exam Eye: Present: PERRL ENT: Present: mucous membranes moist - Routine Neck Exam Present: supple - Routine Respiratory Exam Present: CTA bilaterally - Routine Cardiovascular Exam Present: S1, S2, murmur - Routine Abdominal Exam Present: soft, normoactive bowel sounds - Routine Skin Exam Present: dry, warm Comments: DSG to R HIP C/D/I - Routine Neurological Exam Present: alert Results Procedures completed during hospitalization: ORIF hip fracture - Impressions ITS Impressions Chest X-Ray 02/26/18 20:36 CONCLUSION: No acute disease Head CT 02/26/18 20:36 CONCLUSION: 1. No acute hemorrhage or mass effect. 2. 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 . Femur X-Ray 02/26/18 20:37 CONCLUSION: No definite femur fracture. Recommend pelvis and two-view right hip films Hip X-Ray 02/27/18 00:00 CONCLUSION: Improved alignment following right proximal femur ORIF. Ankle X-Ray 02/28/18 00:00 CONCLUSION: 1. Changes related to old healed fractures of the distal tibia and fibula, as above. 18 mm sclerotic area in the distal left tibia is nonspecific but does not appear to represent an aggressive process. 2. Under mineralized bones. No definite acute fracture is seen. Please note that the hindfoot is only partially visualized. Consider standard views of the left ankle when patient condition permits. Discharge Plan - Discharge Disposition Patient Disposition: 62 Rehab Inpatient - Discharge Condition Condition: Stable - Discharge Order Discharge Orders: Discharge Order (Routine); Ordered 03/04/18 Ordered By: Elizabeth Angel ED Use Only Admit Order (Routine); Ordered 02/26/18 Ordered By: Shila Hawthorne - Physicians Team Primary Care Provider: Timmy Pink Attending Provider: Timmy Pink Other Providers: Lino Patel MD ; [facility],[place]
[2018-03-04 11:59] LABS: Baso % (Auto) 0.7 % (0.0-2.0); Eos # (Auto) 0.1 th/mm3 (0.0-0.4); Eos % (Auto) 2.6 % (0.0-4.0); Hematocrit 22.3 % (35.0-46.0); Hemoglobin 7.8 gm/dL (11.6-15.3); Lymph # (Auto) 1.1 th/mm3 (1.0-4.8); Lymph % (Auto) 22.6 % (9.0-44.0); Mean Corpuscular HGB Conc 34.8 % (32.0-36.0); Mean Corpuscular Hemoglobin 33.1 pg (27.0-34.0); Mean Corpuscular Volume 95.1 fL (80.0-100.0); Mean Platelet Volume 7.6 fL (7.0-11.0); Mono # (Auto) 0.7 th/mm3 (0.0-0.9); Mono % (Auto) 13.6 % (0.0-8.0); Neut # (Auto) 2.9 th/mm3 (1.8-7.7); Neut % (Auto) 60.5 % (16.0-70.0); Platelet Count 122 th/mm3 (150-450); Red Blood Count 2.35 mil/mm3 (4.00-5.30); Red Cell Distribution Width 15.3 % (11.6-17.2); White Blood Count 4.8 th/mm3 (4.0-11.0)
[2018-03-04 12:23] VITALS: BP 140/65; PULSE 70; TEMP 97.2; O2SAT 95
[2018-03-04 13:27] VITALS: RESP 18
== END 2018-03-04 14:32 ==
LOC: NEPE 20:27 → NEDA 23:37 → N06 02-27 03:06
PROVIDERS: ADMIT Family Medicine; ATTEND Family Medicine